=== PATIENT | female | born 1965 | race Caucasian/White ===

== ENCOUNTER 2019-02-01 13:33 | Inpatient (IN) | payer MEDICAID ==
[2019-02-01] MEDS ORDERED: Albuterol 0.5% CONC NEB.SOL* 5 MG/ML 20 ml BOT INH ONE (13:51)
[2019-02-01] MEDS ORDERED: methylPREDNISolone 125 MG* 2 ML VIAL IV ONE (13:52)
--- NOTE | 2019-02-01 13:54 | ED ---
Shortness of Breath - HPI Summary HPI Summary: This patient is a 54 year old female with a Hx of COPD presenting to [facility] with a chief complaint of SOB since 6 days ago. She reports rib pain. She took nebulizer treatments at home to some relief. - History of Current Complaint Chief Complaint: EDShortnessOfBreath Time Seen by Provider: 02/01/19 13:44 Hx Obtained From: Patient Onset/Duration: Lasting Days Dyspnea At: Rest Associated Signs & Symptoms: Cough (Nonproductive) - Allergy/Home Medications Allergies/Adverse Reactions: Allergies Allergy/AdvReac Type Severity Reaction Status Date / Time No Known Allergies Allergy Verified 02/01/19 13:42 Home Medications: Home Medications Aclidinium [place] [Tudorza Pressair] 1 puff INH BID 02/01/19 [History Confirmed 02/01/19] Albuterol 2.5MG/3ML (0.083%)* [Ventolin 2.5 MG/3 ML NEB.RENAN*] 3 ml INH TID PRN 02/01/19 [History Confirmed 02/01/19] Albuterol HFA INHALER* [Ventolin HFA Inhaler*] 2 puff INH Q4H PRN 02/01/19 [ History Confirmed 02/01/19] Fluticasone-Salmeterol 500-50* [Advair Diskus 500-50*] 1 puff INH BID 02/01/19 [ History Confirmed 02/01/19] PMH/Surg Hx/FS Hx/Imm Hx Respiratory History: Reports: Hx Chronic Obstructive Pulmonary Disease (COPD) - Cancer History Hx Chemotherapy: No Hx Radiation Therapy: No Infectious Disease History: No Infectious Disease History: Denies: Traveled Outside the [place] in Last 30 Days Review of Systems Negative: Fever Positive: Shortness Of Breath, Cough Positive: Other - Rib pain All Other Systems Reviewed And Are Negative: Yes Physical Exam - Summary Physical Exam Summary: Constitutional: Well-developed, Well-nourished, Alert. (-) Distressed Skin: Warm, Dry HENT: Normocephalic; Atraumatic Eyes: Conjunctiva normal Neck: Musculoskeletal ROM normal neck. (-) JVD, (-) Stridor, (-) Tracheal deviation Cardio: Rhythm regular, rate normal, Heart sounds normal; Intact distal pulses; Radial pulses are 2+ and symmetric. (-) Murmur Pulmonary/Chest wall:(+) Respiratory distress, No retractions or tripoding. Speaks in 4-5 word sentences. Increased respiratory effort bilaterally, decreased breath sounds bilaterally, Expiratory wheezes bilaterally, (-) Rales Abd: Soft, (-) tenderness, (-) Distension, (-) Guarding, (-) Rebound Musculoskeletal: (-) Edema Lymph: (-) Cervical adenopathy Neuro: Alert, Oriented x3 Psych: Mood and affect Normal Triage Information Reviewed: Yes Vital Signs On Initial Exam: Initial Vitals Temp Pulse Resp BP Pulse Ox 100 F 122 30 152/81 60 02/01/19 13:36 02/01/19 13:36 02/01/19 13:36 02/01/19 13:36 02/01/19 13:36 Vital Signs Reviewed: Yes Procedures - Sedation Patient Received Moderate/Deep Sedation with Procedure: No Diagnostics - Vital Signs Vital Signs Temp Pulse Resp BP Pulse Ox 02/01/19 13:36 100 F 122 30 152/81 60 - Laboratory Result Diagrams: 02/01/19 14:06 02/01/19 14:06 Lab Statement: Any lab studies that have been ordered have been reviewed, and results considered in the medical decision making process. - Radiology CXR Radiology Interpretation Completed By: Radiologist Summary of Radiographic Findings: Small basilar infiltrates. ED Physician has reviewed this report. Re-Evaluation - Re-Evaluation First Eval Re-Evaluation Time: 15:01 Change: Improved Comment: She is feeling better, still getting her nebulizer treatment on vapotherm. Second Eval Re-Evaluation Time: 15:33 Comment: We will trial her off vapotherm. Course/Dx - Course Course Of Treatment: Patient is here with shortness of breath. Patient was 60% on room air upon arrival and was placed on oxygen mask. Patient was then given a 10 mg bolus treatment and placed on Vapotherm at improvement in her symptoms. Patient is given Solu-Medrol and antibiotics empirically. Patient had a chest x-ray showed possible bibasilar infiltrate. Patient was admitted to medicine for further management. - Diagnoses Provider Diagnoses: Pneumonia, COPD exacerbation, Respiratory distress - Critical Care Time Critical Care Time: 30-74 min - 35 mins Discharge ED - Sign-Out/Discharge Documenting (check all that apply): Patient Departure - Admission, accepted by Dr. Wayne, Hospitalist - Discharge Plan Condition: Stable Disposition: ADMITTED TO [facility] Referrals: Jono Max MD [Primary Care Provider] - - Billing Disposition and Condition Condition: STABLE Disposition: Admitted to [facility] - Attestation Statements Document Initiated by Lina: Yes Documenting Scribe: Jono Sam Provider For Whom Lina is Documenting (Include Credential): Marbin Garcia MD Scribe Attestation: Jono Raphael, scribed for Marbin Garcia MD on 02/01/19 at 1716. Scribe Documentation Reviewed: Yes Provider Attestation: The documentation as recorded by the Jono mix accurately reflects the service I personally performed and the decisions made by me, Marbin Garcia MD Status of Scribe Document: Viewed
[2019-02-01 14:16] LABS: ABS Basophils 0.1 10^3/ul (0-0.2); ABS Lymphocytes 1.2 10^3/ul (1.0-4.8); ABS Neutrophils 13.8 10^3/ul (1.5-7.7); Eosinophil % 0.3 %; Hematocrit 50 % (35-47); Hemoglobin 17.1 g/dL (12.0-16.0); Lymphocyte % 7.4 %; Mean Corpuscular HGB Conc 34 g/dL (31-36); Mean Corpuscular Hemoglobin 32 pg (27-31); Mean Corpuscular Volume 94 fL (80-97); Mean Platelet Volume 8.9 fL (7.4-10.4); Nucleated Red Blood Cells % 0.1; Platelet Count 239 10^3/uL (150-450); Red Blood Count 5.35 10^6 /uL (3.70-4.87); Red Cell Distribution Width 14 % (10-15); White Blood Count 16.2 10^3/uL (3.5-10.8)
[2019-02-01 14:33] LABS: BUN/Creatinine Ratio 17.3 (8-20); Calcium 9.6 mg/dL (8.6-10.3); EGFR African American 88.5 (>60); EGFR Non-African American 73.1 (>60); Potassium 3.7 mmol/L (3.5-5.0)
[2019-02-01 14:36] LABS: Troponin I 0.03 ng/mL (<0.04)
[2019-02-01] MEDS ORDERED: Azithromycin 500 mg/250 ml NS 500 MG/250 ML BAG IVPB ONE (15:21)
[2019-02-01] MEDS ORDERED: cefTRIAXone(*) 1 GM in NS 0.9% 50 ML* 50 ML IVPB ONE (15:21)
[2019-02-01] MEDS ORDERED: Senna TAB 8.6 mg* TAB PO PRN (17:06)
[2019-02-01] MEDS ORDERED: Al Hydrox/Mg Hydrox/Simet LIQ* 30 ML UDC PO PRN (17:06)
[2019-02-01] MEDS ORDERED: Ondansetron INJ* 2 MG/ML VIAL IV PRN (17:06)
[2019-02-01] MEDS ORDERED: Albuterol HFA INHALER* 8 gm MDI INH PRN (17:10)
[2019-02-01] MEDS: Albuterol/Ipratropium NEB.SOL* Albuterol 2.5 MG/Ipratropium 0.5 MG 3 ML INH SCH ×2 (19:34→22:53)
[2019-02-01] MEDS: Mometasone/Formoter 200/5 MDI INH SCH (19:34)
--- NOTE | 2019-02-01 19:47 | HP ---
CC: Dr. Max * HISTORY AND PHYSICAL: DATE OF ADMISSION: 02/01/19 PRIMARY CARE PROVIDER: Dr. Max ATTENDING PHYSICIAN WHILE IN THE HOSPITAL: Dr. Collin Saunders * (dictated by YULI Drake) CHIEF COMPLAINT: Shortness of breath x6 days. HISTORY OF PRESENT ILLNESS: Charlotte Figueroa is a 54-year-old white female with past medical history significant for COPD, on 2 L of oxygen at home, who presented to the emergency department today for shortness of breath that has been worsening for last 6 days. The patient has been having progressively worsening shortness of breath and is to the point for the last 2 days where she is short of breath at rest. She has been using her albuterol nebulizer which help but within a few hours they wear off and she is feeling quite short of breath even at rest. She has been having productive cough over the last 6 days as well which has been producing yellow or green sputum. She does not feel as if she has been feeling fever but has been "feeling hot" and denies shaking chills. For the last 2 days, she has been having rib pain with cough. She denies chest pain, dysuria, change in bowel movements, abdominal pain, nausea, or vomiting. She endorses that the rash to her cortez has been present for last 2 years. She was previously prescribed a steroid cream which helps but when she ran out of it, the rash came back. It seems that she has not talked to her primary care provider about this and also has been unable to see her primary care provider because of lack of insurance at this time. The patient has been having decreased appetite over the last 5 to 6 days as well. EMERGENCY DEPARTMENT COURSE: When the patient arrived to emergency department, her vital signs were temperature of 100.0 degrees Fahrenheit, heart rate of 122 , respiratory rate of 30, oxygen saturation of 60% on room air, blood pressure 152/81. The patient was given 125 mg of IV Solu-Medrol, 1 g of IV ceftriaxone, 500 mg of IV azithromycin and albuterol nebulizer. She was then given high flow oxygen at 15 L and her oxygen saturation was 95%. PAST MEDICAL HISTORY: COPD, on 2 L of oxygen. The patient denies prior history of diabetes, LA, and CVA. She is unsure if she has the diagnosis regarding the rash on her lower extremities. PAST SURGICAL HISTORY: Tubal ligation. HOME MEDICATIONS: 1. N[place]um Diskus 500-50 one puff inhale b.i.d. 2. Ventolin 2 puffs inhale q.4 hours p.r.n. shortness of breath or wheezing. 3. Albuterol nebulizer 3 mL inhale t.i.d. p.r.n. shortness of breath or wheezing. 4. Tudorza Pressair one puff inhale b.i.d. ALLERGIES: No known drug allergies. FAMILY HISTORY: Father at unknown age of unknown reason. Mother at age unknown to the patient due to complications of possible internal bleeding which is overall unclear to the patient. The patient's sister in her 50s of complications related to COPD. SOCIAL HISTORY: The patient is on disability. Prior to being on disability, she was a date night sitter. She lives with her and they have 4 children together. She quit smoking approximately a year ago, prior to that she was smoking for 40 years, approximately at 1 packet per day. She denies alcohol use and illicit drug use. Should she need a surrogate medical decision maker, she would like her , Denys Figueroa to do so. His phone number is [phone]. REVIEW OF SYSTEMS: An 11-point review of systems was completed and all pertinent positives and negatives are above in the HPI. All other systems are negative. PHYSICAL EXAMINATION GENERAL: Overweight white female appears older than stated age sitting upright in hospital bed, appearing comfortable, in no acute distress. at bedside. HEENT: Head: Normocephalic, atraumatic. Eyes: PERRL. Sclerae anicteric. ENT: Mucous membranes are moist. LUNGS: Diminished breath sounds throughout. Faint expiratory wheezing in the middle and upper lung ndiaye bilaterally, posteriorly as well as anteriorly. No use of accessory muscles with respirations. Is not overtly dyspneic during my exam. CARDIO: Regular rate and rhythm without murmurs, rubs, or gallops. ABDOMEN: Soft, nontender, nondistended. EXTREMITIES: No clubbing, cyanosis, or edema. NEURO: The patient is alert and oriented x3. No focal deficits. No tremors. Able to move all extremities. SKIN: Dry, large patch of approximately 3 inches x 5 inches bilaterally on anterior distal shins with evidence of excoriation and erythematous on the surrounding on the edge of the patch and throughout disseminated. The skin is otherwise warm, dry, and intact. DIAGNOSTIC STUDIES/LAB DATA: White blood cell count 16.2, hemoglobin 17.1, hematocrit 50, platelet count 239. Sodium 136, potassium 3.7, chloride 99, carbon dioxide 27, anion gap 10, BUN 14, creatinine 1.81, glucose 127. Calcium 9.6. Troponin 0.03. VBG pH 7.34, pCO2 56, pO2 172.0, bicarb 27.3, O2 sat 100, base excess 3.1. EKG: Sinus tachycardia 118 beats per minute. No ST elevations or depressions. T wave flattening in V1, which is consistent with prior EKG from 2010. Chest x-ray, impression: Small bibasilar infiltrates. ASSESSMENT AND PLAN: Jyoti Figueroa is a 54-year-old white female with past medical history significant for chronic obstructive pulmonary disease, on 2 L of oxygen, who presents to the emergency department with shortness of breath that has been progressive for the last 6 days. She will be admitted inpatient for: 1. Acute on chronic respiratory failure with hypoxia. This is secondary to chronic obstructive pulmonary disease exacerbation which is likely triggered by pneumonia as evidenced by her chest x-ray. She was hypoxic 60% saturation on arrival. Her VBG was taken after she was given sufficient oxygen. At the time of my evaluation, she is on 10 L but this is with a simple oxygen mask as opposed to nasal cannula. She does not demonstrate significant effort of respirations at this time and she will get scheduled DuoNeb. I will continue ceftriaxone, azithromycin. I will order a sputum culture, urine legionella and urine Strep pneumoniae. At the time of arrival to emergency department, she was tachycardiac and tachypneic with leukocytosis. However, I do not believe she is septic as I believe tachycardia and tachypnea is due to severe shortness of breath secondary to chronic obstructive pulmonary disease exacerbation. I will order 60 mg of prednisone to start tomorrow and I will continue her home inhalers. 2. Rash. The patient has had a persistent rash for last 2 years and it is possible that this is atopic dermatitis that previously resolved with steroids. I will order some steroid cream while she is in the hospital. I will order hydrocortisone cream b.i.d. and monitor for improvement. 3. Pneumonia. Bibasilar infiltrates as demonstrated on EKG. Management as described above with ceftriaxone and azithromycin and the patient is afebrile at this time and we will continue to monitor her leukocytosis. 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 4. FEN: Electrolytes within normal limits. No IV fluid needed at this time. The patient may have regular unrestricted diet. 5. Code status: The patient is full code. 6. DVT prophylaxis: The patient has a DVT risk score of 2. I will order Lovenox 40 mg subcu daily. 7. Early discharge planning. Social work has been consulted as the patient does not have insurance. TIME SPENT: Approximately 45 minutes was spent on this admission, approximately half this time was spent at bedside evaluating the patient and discussing the plan of care. This case has been reviewed with my attending, Dr. Collin Saunders, and he agrees with this plan of care. YULI DRAKE [id number]/[facility] #: [id number] SORIN
[2019-02-01] MEDS: Enoxaparin(*) 40 MG/0.4 ML SYR SUBCUT SCH (22:05)
[2019-02-01] MEDS: Hydrocortisone 1% CREAM* 30 GM TUBE TOPICAL SCH (22:08)
[2019-02-01] MEDS: ACLIDINIUM BROMIDE INH SCH (22:18)
[2019-02-02 05:26] LABS: ABS Monocytes 0.2 10^3/ul (0-0.8); ABS Neutrophils 12.1 10^3/ul (1.5-7.7); Hematocrit 48 % (35-47); Hemoglobin 16.1 g/dL (12.0-16.0); Lymphocyte % 7.6 %; Mean Corpuscular HGB Conc 34 g/dL (31-36); Mean Corpuscular Hemoglobin 32 pg (27-31); Mean Corpuscular Volume 94 fL (80-97); Mean Platelet Volume 9.1 fL (7.4-10.4); Nucleated Red Blood Cells % 0.1; Platelet Count 236 10^3/uL (150-450); Red Blood Count 5.07 10^6 /uL (3.70-4.87); Red Cell Distribution Width 14 % (10-15); White Blood Count 13.3 10^3/uL (3.5-10.8)
[2019-02-02 05:44] LABS: BUN/Creatinine Ratio 23.8 (8-20); Calcium 9.5 mg/dL (8.6-10.3); EGFR African American 84.9 (>60); EGFR Non-African American 70.1 (>60); Potassium 4.1 mmol/L (3.5-5.0)
[2019-02-02] MEDS: Albuterol/Ipratropium NEB.SOL* Albuterol 2.5 MG/Ipratropium 0.5 MG 3 ML INH SCH ×6 (07:10→23:27)
[2019-02-02] MEDS: Mometasone/Formoter 200/5 MDI INH SCH ×2 (08:23→19:40)
[2019-02-02] MEDS: predniSONE TAB* 20 MG PO SCH (09:31)
[2019-02-02] MEDS: Hydrocortisone 1% CREAM* 30 GM TUBE TOPICAL SCH ×2 (09:31→21:55)
[2019-02-02] MEDS: ACLIDINIUM BROMIDE INH SCH (09:45)
[2019-02-02] MEDS: Acetaminophen TAB* 325 MG PO PRN (12:32)
--- NOTE | 2019-02-02 13:11 | PN ---
Subjective Date of Service: 02/02/19 Interval History: Patient feels her breathing is more comfortable than yesterday. Switched to humidified nasal cannula today which has given her comfort as well. Patient denies SOB at rest, chest pain, fever/chills, abd pain. Agrees rash on legs is improved, denies itch. Objective Active Medications: Acetaminophen (Tylenol Tab*) 650 mg PO Q4H PRN PRN Reason: MILD PAIN or TEMP > 100.4 Last Admin: 02/02/19 12:32 Dose: 650 mg Al Hydrox/Mg Hydrox/Simethicone (Maalox Plus*) 30 ml PO Q6H PRN PRN Reason: INDIGESTION Albuterol (Ventolin Hfa Inhaler*) 2 puff INH Q4H PRN PRN Reason: SOB/WHEEZING Albuterol/Ipratropium (Duoneb (Albuterol 2.5 Mg/Ipratropium 0.5 Mg)) 1 neb INH [id number] AWAKE [facility] Last Admin: 02/02/19 11:43 Dose: 1 neb Enoxaparin Sodium (Lovenox(*)) 40 mg SUBCUT Q24H [facility] Last Admin: 02/01/19 22:05 Dose: 40 mg Hydrocortisone (Hytone Cream 1%*) 1 applic TOPICAL BID [facility] Last Admin: 02/02/19 09:31 Dose: 1 applic Ceftriaxone Sodium 1 gm/ (Sodium Chloride) 50 mls @ 100 mls/hr IVPB Q24H [facility] Azithromycin 250 mg/ Sodium (Chloride) 250 mls @ 250 mls/hr IVPB Q24H [facility] Mometasone Furoate/Formoterol Fumar (Dulera 200/5 Mdi*) 2 puff INH BID [facility] Last Admin: 02/02/19 08:23 Dose: 2 puff Non-Formulary Medication (Aclidinium [place] [Tudorza Pressair]) 1 puff INH BID [facility] Last Admin: 02/02/19 09:45 Dose: Not Given Ondansetron HCl (Zofran Inj*) 4 mg IV Q4H PRN PRN Reason: NAUSEA/VOMITING Prednisone (Deltasone Tab*) 60 mg PO DAILY [facility] Last Admin: 02/02/19 09:31 Dose: 60 mg Senna (Senokot 8.6 Mg Tab*) 1 tab PO BID PRN PRN Reason: CONSTIPATION Vital Signs - 8 hr 02/02/19 02/02/19 02/02/19 07:15 08:00 08:24 Temperature 96.5 F Pulse Rate 75 72 Respiratory 20 16 18 Rate Blood Pressure 114/79 (mmHg) O2 Sat by Pulse 89 97 Oximetry 02/02/19 02/02/19 02/02/19 11:13 11:46 11:47 Temperature 97.6 F Pulse Rate 86 70 93 Respiratory 24 18 70 Rate Blood Pressure 112/67 (mmHg) O2 Sat by Pulse 91 93 18 Oximetry Oxygen Devices in Use Now: Nasal Cannula Appearance: Overweight white female, appears older than stated age, laying upright in bed, in NAD Eyes: No Scleral Icterus, - - PERRL Ears/Nose/Mouth/Throat: Mucous Membranes Moist Neck: Trachea Midline Respiratory: Symmetrical Chest Expansion and Respiratory Effort, - - faint inspiratory and significant expiratory wheezing throughout; no accessory muscle use with respirations Cardiovascular: NL Sounds; No Murmurs; No JVD, RRR Abdominal: - - abd soft, nontender, nondistended Extremities: No Edema, No Clubbing, Cyanosis Skin: - - patches of erythema same size as admission with excoriations, erythema less dark, blanchable Neurological: Alert and Oriented x 3, NL Muscle Strength and Tone Result Diagrams: 02/02/19 05:07 02/02/19 05:07 Microbiology and Other Data: Microbiology 02/01/19 23:25 Gram Stain - Final Sputum 02/01/19 22:42 Legionella Urinary Antigen - Final Urine Negative Legionella Antigen Streptococcus pneumoniae Ag Screen - Final Negative S. pneumo Antigen Assess/Plan/Problems-Billing Assessment: 54 yo white female with PMHx COPD with chronic hypoxic respiratory failure on 2L O2 at home presents with SOB and cough x6 days. - Patient Problems (1) Acute and chronic respiratory failure with hypoxia Current Visit: Yes Status: Acute Code(s): J96.21 - ACUTE AND CHRONIC RESPIRATORY FAILURE WITH HYPOXIA SNOMED Code(s): 15179161 Comment: -presented with hypoxia, oxygen saturation 60% -requires 2L oxygen at home, currently using 6L -COPD exacerbation likely 2/2 pneumonia -significant wheezing though dyspnea greatly improved -continue scheduled duonebs, prednisone, flutter valve, home inhalers (2) Pneumonia Current Visit: Yes Status: Acute Code(s): J18.9 - PNEUMONIA, UNSPECIFIED ORGANISM SNOMED Code(s): 296822898 Comment: -bibasilar consolidations on CXR at admission -sputum culture pending -urine legionella and strep pneumo antigens negative -continue ceftriaxone and azithromycin -afebrile; leukocytosis downtrending though she is now on glucocorticoids (3) Rash Current Visit: Yes Status: Acute Code(s): R21 - RASH AND OTHER NONSPECIFIC SKIN ERUPTION SNOMED Code(s): 593881782 Comment: -to bilateral LEs -has improved in the past with steroid cream -appears consistent with atopic dermatitis, should have follow up outpatient -continue hydrocortisone cream (4) DVT prophylaxis Current Visit: Yes Status: Acute Code(s): Z29.9 - ENCOUNTER FOR PROPHYLACTIC MEASURES, UNSPECIFIED SNOMED Code(s): 296445639 Comment: -lovenox (5) Full code status Current Visit: Yes Status: Acute Code(s): Z78.9 - OTHER SPECIFIED HEALTH STATUS SNOMED Code(s): 921095162 Status and Disposition: pending medical improvement
[2019-02-02] MEDS: SPIRIVA Respimat* (tiotropium) 2.5 mcg/inh Inhaler INH SCH (15:12)
[2019-02-02] MEDS: cefTRIAXone(*) 1 GM in NS 0.9% 50 ML* 50 ML IVPB SCH (15:50)
[2019-02-02] MEDS: Azithromycin IV(*) 250 MG in NS 0.9% 250 ML* 250 ML IVPB SCH (16:42)
[2019-02-02] MEDS: Enoxaparin(*) 40 MG/0.4 ML SYR SUBCUT SCH (17:53)
[2019-02-03] MEDS: Acetaminophen TAB* 325 MG PO PRN ×3 (06:31→23:45)
[2019-02-03] MEDS: Albuterol/Ipratropium NEB.SOL* Albuterol 2.5 MG/Ipratropium 0.5 MG 3 ML INH SCH ×6 (06:48→23:20)
[2019-02-03] MEDS: Mometasone/Formoter 200/5 MDI INH SCH ×2 (07:28→19:21)
[2019-02-03] MEDS: SPIRIVA Respimat* (tiotropium) 2.5 mcg/inh Inhaler INH SCH (07:28)
[2019-02-03] MEDS: predniSONE TAB* 20 MG PO SCH (09:01)
--- NOTE | 2019-02-03 10:10 | PN ---
Subjective Date of Service: 02/03/19 Interval History: Patient reports her cough and shortness of breath continue to improve. She says her breathing feels very comfortable. Her oxygen was increased from 6L to 8L NC overnight and unclear why. Patient does continue to have productive cough but she reports less sputum production. Denies fever/chills. Reports rib pain on right side when coughing only. Denies chest pain, abd pain. Objective Active Medications: Acetaminophen (Tylenol Tab*) 650 mg PO Q4H PRN PRN Reason: MILD PAIN or TEMP > 100.4 Last Admin: 02/03/19 06:31 Dose: 650 mg Al Hydrox/Mg Hydrox/Simethicone (Maalox Plus*) 30 ml PO Q6H PRN PRN Reason: INDIGESTION Albuterol (Ventolin Hfa Inhaler*) 2 puff INH Q4H PRN PRN Reason: SOB/WHEEZING Albuterol/Ipratropium (Duoneb (Albuterol 2.5 Mg/Ipratropium 0.5 Mg)) 1 neb INH [id number] AWAKE [facility] Last Admin: 02/03/19 07:25 Dose: 1 neb Enoxaparin Sodium (Lovenox(*)) 40 mg SUBCUT Q24H [facility] Last Admin: 02/02/19 17:53 Dose: 40 mg Hydrocortisone (Hytone Cream 1%*) 1 applic TOPICAL BID [facility] Last Admin: 02/02/19 21:55 Dose: 1 applic Ceftriaxone Sodium 1 gm/ (Sodium Chloride) 50 mls @ 100 mls/hr IVPB Q24H [facility] Last Admin: 02/02/19 15:50 Dose: 100 mls/hr Azithromycin 250 mg/ Sodium (Chloride) 250 mls @ 250 mls/hr IVPB Q24H [facility] Last Admin: 02/02/19 16:42 Dose: 250 mls/hr Mometasone Furoate/Formoterol Fumar (Dulera 200/5 Mdi*) 2 puff INH BID [facility] Last Admin: 02/03/19 07:28 Dose: 2 puff Ondansetron HCl (Zofran Inj*) 4 mg IV Q4H PRN PRN Reason: NAUSEA/VOMITING Prednisone (Deltasone Tab*) 60 mg PO DAILY [facility] Last Admin: 02/03/19 09:01 Dose: 60 mg Senna (Senokot 8.6 Mg Tab*) 1 tab PO BID PRN PRN Reason: CONSTIPATION Tiotropium [place] (Spiriva Respimat 2.5 Mcg) 2 puff INH DAILY [facility] Last Admin: 02/03/19 07:28 Dose: 2 puff Vital Signs - 8 hr 02/03/19 02/03/19 02/03/19 03:10 06:05 07:29 Temperature 97.8 F 97.4 F Pulse Rate 69 66 50 Respiratory 20 20 16 Rate Blood Pressure 138/114 112/57 (mmHg) O2 Sat by Pulse 91 91 Oximetry Oxygen Devices in Use Now: High Flow Nasal Cannula Appearance: Overweight, white female who appears older than stated age, laying upright in bed, appearing comfortable and in NAD Eyes: No Scleral Icterus, - - PERRL Ears/Nose/Mouth/Throat: Mucous Membranes Moist Neck: Trachea Midline Respiratory: Symmetrical Chest Expansion and Respiratory Effort, - - faint expiratory wheezing bilaterally throughout Cardiovascular: NL Sounds; No Murmurs; No JVD, RRR Abdominal: - - abd soft, nontender, nondistended Extremities: No Edema, No Clubbing, Cyanosis Skin: - - patches of rash to bilateral shins unchanged from yesterday with diffuse excoriations Neurological: Alert and Oriented x 3, NL Muscle Strength and Tone Result Diagrams: 02/02/19 05:07 02/02/19 05:07 Microbiology and Other Data: Microbiology 02/01/19 23:25 Gram Stain - Final Sputum 02/01/19 22:42 Legionella Urinary Antigen - Final Urine Negative Legionella Antigen Streptococcus pneumoniae Ag Screen - Final Negative S. pneumo Antigen Assess/Plan/Problems-Billing Assessment: 54 yo white female with PMHx COPD with chronic hypoxic respiratory failure on 2L O2 at home presents with SOB and cough x6 days. - Patient Problems (1) Acute and chronic respiratory failure with hypoxia Current Visit: Yes Status: Acute Code(s): J96.21 - ACUTE AND CHRONIC RESPIRATORY FAILURE WITH HYPOXIA SNOMED Code(s): 29426390 Comment: -presented with hypoxia, oxygen saturation 60% -requires 2L oxygen at home, currently using 6L, will attempt to wean -COPD exacerbation likely 2/2 pneumonia -still with wheezing on exam but improving; no longer dyspneic -continue scheduled duonebs, prednisone, flutter valve, home inhalers (2) Pneumonia Current Visit: Yes Status: Acute Code(s): J18.9 - PNEUMONIA, UNSPECIFIED ORGANISM SNOMED Code(s): 783584441 Comment: -bibasilar consolidations on CXR at admission -sputum culture pending -urine legionella and strep pneumo antigens negative -continue ceftriaxone and azithromycin -afebrile; leukocytosis downtrending though she is now on glucocorticoids (3) Rash Current Visit: Yes Status: Acute Code(s): R21 - RASH AND OTHER NONSPECIFIC SKIN ERUPTION SNOMED Code(s): 861369743 Comment: -to bilateral LEs -has improved in the past with steroid cream -appears consistent with atopic dermatitis, should have follow up outpatient -continue hydrocortisone cream (4) DVT prophylaxis Current Visit: Yes Status: Acute Code(s): Z29.9 - ENCOUNTER FOR PROPHYLACTIC MEASURES, UNSPECIFIED SNOMED Code(s): 795435682 Comment: -lovenox (5) Full code status Current Visit: Yes Status: Acute Code(s): Z78.9 - OTHER SPECIFIED HEALTH STATUS SNOMED Code(s): 729762279 Status and Disposition: pending medical improvement
[2019-02-03] MEDS: Hydrocortisone 1% CREAM* 30 GM TUBE TOPICAL SCH ×2 (14:11→19:52)
[2019-02-03] MEDS: cefTRIAXone(*) 1 GM in NS 0.9% 50 ML* 50 ML IVPB SCH (16:35)
[2019-02-03] MEDS: Azithromycin IV(*) 250 MG in NS 0.9% 250 ML* 250 ML IVPB SCH (17:38)
[2019-02-03] MEDS: Enoxaparin(*) 40 MG/0.4 ML SYR SUBCUT SCH (18:17)
[2019-02-04] MEDS: Albuterol/Ipratropium NEB.SOL* Albuterol 2.5 MG/Ipratropium 0.5 MG 3 ML INH SCH ×6 (04:12→23:11)
[2019-02-04] MEDS: predniSONE TAB* 20 MG PO SCH (09:56)
[2019-02-04] MEDS: Acetaminophen TAB* 325 MG PO PRN ×2 (09:56→15:06)
[2019-02-04] MEDS: Hydrocortisone 1% CREAM* 30 GM TUBE TOPICAL SCH ×2 (09:57→19:53)
[2019-02-04] MEDS: Mometasone/Formoter 200/5 MDI INH SCH ×2 (12:07→19:11)
[2019-02-04] MEDS: SPIRIVA Respimat* (tiotropium) 2.5 mcg/inh Inhaler INH SCH (12:08)
--- NOTE | 2019-02-04 13:03 | PN ---
Subjective Date of Service: 02/04/19 Interval History: Patient does continue to have sputum production with cough. Was SOB when walking to the bathroom, but reports this is same as baseline. Denies fever/ chills, chest pain, abd pain. Agrees rash continues to improve. C/o nasal passages feeling dry and irritated. Objective Active Medications: Acetaminophen (Tylenol Tab*) 650 mg PO Q4H PRN PRN Reason: MILD PAIN or TEMP > 100.4 Last Admin: 02/04/19 09:56 Dose: 650 mg Al Hydrox/Mg Hydrox/Simethicone (Maalox Plus*) 30 ml PO Q6H PRN PRN Reason: INDIGESTION Albuterol (Ventolin Hfa Inhaler*) 2 puff INH Q4H PRN PRN Reason: SOB/WHEEZING Albuterol/Ipratropium (Duoneb (Albuterol 2.5 Mg/Ipratropium 0.5 Mg)) 1 neb INH [id number] AWAKE [facility] Last Admin: 02/04/19 12:07 Dose: 1 neb Enoxaparin Sodium (Lovenox(*)) 40 mg SUBCUT Q24H [facility] Last Admin: 02/03/19 18:17 Dose: 40 mg Hydrocortisone (Hytone Cream 1%*) 1 applic TOPICAL BID [facility] Last Admin: 02/04/19 09:57 Dose: 1 applic Ceftriaxone Sodium 1 gm/ (Sodium Chloride) 50 mls @ 100 mls/hr IVPB Q24H [facility] Last Admin: 02/03/19 16:35 Dose: 100 mls/hr Azithromycin 250 mg/ Sodium (Chloride) 250 mls @ 250 mls/hr IVPB Q24H [facility] Last Admin: 02/03/19 17:38 Dose: 250 mls/hr Mometasone Furoate/Formoterol Fumar (Dulera 200/5 Mdi*) 2 puff INH BID [facility] Last Admin: 02/04/19 12:07 Dose: 2 puff Ondansetron HCl (Zofran Inj*) 4 mg IV Q4H PRN PRN Reason: NAUSEA/VOMITING Prednisone (Deltasone Tab*) 60 mg PO DAILY [facility] Last Admin: 02/04/19 09:56 Dose: 60 mg Senna (Senokot 8.6 Mg Tab*) 1 tab PO BID PRN PRN Reason: CONSTIPATION Tiotropium [place] (Spiriva Respimat 2.5 Mcg) 2 puff INH DAILY [facility] Last Admin: 02/04/19 12:08 Dose: Not Given Vital Signs - 8 hr 02/04/19 02/04/19 02/04/19 05:36 08:00 08:35 Temperature 98.5 F Pulse Rate 67 62 Respiratory 16 20 20 Rate Blood Pressure 122/65 (mmHg) O2 Sat by Pulse 95 91 Oximetry 02/04/19 12:08 Temperature Pulse Rate 69 Respiratory 18 Rate Blood Pressure (mmHg) O2 Sat by Pulse 95 Oximetry Oxygen Devices in Use Now: Nasal Cannula Appearance: White female who appears older than stated age, laying upright eating lunch, appearing in NAD Eyes: No Scleral Icterus, - - PERRL Ears/Nose/Mouth/Throat: Mucous Membranes Moist Neck: Trachea Midline Respiratory: Symmetrical Chest Expansion and Respiratory Effort, - - expiratory wheeze only in right upper lung field, otherwise diffuse rhonchi Cardiovascular: NL Sounds; No Murmurs; No JVD, RRR Abdominal: - - abd soft, nontender, nondistended Extremities: No Edema, No Clubbing, Cyanosis Skin: - - erythematous, dry patches to bilateral LEs appear less erythematous Neurological: Alert and Oriented x 3, NL Muscle Strength and Tone Result Diagrams: 02/02/19 05:07 02/02/19 05:07 Microbiology and Other Data: Microbiology 02/01/19 23:25 Gram Stain - Final Sputum 02/01/19 22:42 Legionella Urinary Antigen - Final Urine Negative Legionella Antigen Streptococcus pneumoniae Ag Screen - Final Negative S. pneumo Antigen Assess/Plan/Problems-Billing Assessment: 54 yo white female with PMHx COPD with chronic hypoxic respiratory failure on 2L O2 at home presents with SOB and cough x6 days. - Patient Problems (1) Acute and chronic respiratory failure with hypoxia Current Visit: Yes Status: Acute Code(s): J96.21 - ACUTE AND CHRONIC RESPIRATORY FAILURE WITH HYPOXIA SNOMED Code(s): 90586309 Comment: -presented with hypoxia, oxygen saturation 60% -requires 2L oxygen at home, currently using 6L, will attempt to wean -COPD exacerbation 2/2 pneumonia -wheezing on exam greatly improved -continue scheduled duonebs, prednisone, flutter valve, home inhalers -ordering mucinex -ordering saline nasal spray and will discuss humidified NC with nursing for irritated nasal passages (2) Pneumonia Current Visit: Yes Status: Acute Code(s): J18.9 - PNEUMONIA, UNSPECIFIED ORGANISM SNOMED Code(s): 375344726 Comment: -bibasilar consolidations on CXR at admission -sputum culture with normal mihai -urine legionella and strep pneumo antigens negative -continue ceftriaxone and azithromycin -afebrile; leukocytosis downtrending though she is now on glucocorticoids (3) Rash Current Visit: Yes Status: Acute Code(s): R21 - RASH AND OTHER NONSPECIFIC SKIN ERUPTION SNOMED Code(s): 225619453 Comment: -to bilateral LEs -has improved in the past with steroid cream -appears consistent with atopic dermatitis, should have follow up outpatient -continue hydrocortisone cream (4) DVT prophylaxis Current Visit: Yes Status: Acute Code(s): Z29.9 - ENCOUNTER FOR PROPHYLACTIC MEASURES, UNSPECIFIED SNOMED Code(s): 420743761 Comment: -lovenox (5) Full code status Current Visit: Yes Status: Acute Code(s): Z78.9 - OTHER SPECIFIED HEALTH STATUS SNOMED Code(s): 834259127 Status and Disposition: pending medical improvement
[2019-02-04] MEDS ORDERED: Saline NASAL DROPS 0.65%* 1 DROP BTL BOTH NARES PRN (13:07)
[2019-02-04] MEDS: cefTRIAXone(*) 1 GM in NS 0.9% 50 ML* 50 ML IVPB SCH (15:06)
[2019-02-04] MEDS: Azithromycin IV(*) 250 MG in NS 0.9% 250 ML* 250 ML IVPB SCH (16:13)
[2019-02-04] MEDS: Saline NASAL SPRAY 0.65%* BTL BOTH NARES PRN (16:49)
[2019-02-04] MEDS: Enoxaparin(*) 40 MG/0.4 ML SYR SUBCUT SCH (16:49)
[2019-02-04] MEDS: guaiFENesin ER TAB 600 MG PO SCH (19:53)
[2019-02-05] MEDS: Albuterol/Ipratropium NEB.SOL* Albuterol 2.5 MG/Ipratropium 0.5 MG 3 ML INH SCH ×6 (03:18→23:22)
[2019-02-05] MEDS: Acetaminophen TAB* 325 MG PO PRN ×2 (06:36→18:28)
[2019-02-05] MEDS: SPIRIVA Respimat* (tiotropium) 2.5 mcg/inh Inhaler INH SCH (07:30)
[2019-02-05] MEDS: Mometasone/Formoter 200/5 MDI INH SCH ×2 (07:30→19:33)
[2019-02-05] MEDS: guaiFENesin ER TAB 600 MG PO SCH ×2 (10:28→20:01)
[2019-02-05] MEDS: predniSONE TAB* 20 MG PO SCH (10:28)
[2019-02-05] MEDS: Hydrocortisone 1% CREAM* 30 GM TUBE TOPICAL SCH ×2 (10:28→20:01)
[2019-02-05] MEDS: cefTRIAXone(*) 1 GM in NS 0.9% 50 ML* 50 ML IVPB SCH (15:22)
[2019-02-05] MEDS: Azithromycin IV(*) 250 MG in NS 0.9% 250 ML* 250 ML IVPB SCH (16:32)
[2019-02-05] MEDS: Enoxaparin(*) 40 MG/0.4 ML SYR SUBCUT SCH (18:26)
--- NOTE | 2019-02-05 19:34 | PN ---
Subjective Date of Service: 02/05/19 Interval History: Patient has no complaints. No acute overnight events. Fortunately, SW has discovered patient has already had medicaid unbeknownst to patient. Patient does continue to have sputum production with cough. Denies chest pain, difficulty breathing, fever/chills, abd pain, nausea. Nasal irritation from nasal cannula has improved today per patient. Objective Active Medications: Acetaminophen (Tylenol Tab*) 650 mg PO Q4H PRN PRN Reason: MILD PAIN or TEMP > 100.4 Last Admin: 02/05/19 18:28 Dose: 650 mg Al Hydrox/Mg Hydrox/Simethicone (Maalox Plus*) 30 ml PO Q6H PRN PRN Reason: INDIGESTION Albuterol (Ventolin Hfa Inhaler*) 2 puff INH Q4H PRN PRN Reason: SOB/WHEEZING Albuterol/Ipratropium (Duoneb (Albuterol 2.5 Mg/Ipratropium 0.5 Mg)) 1 neb INH [id number] AWAKE [facility] Last Admin: 02/05/19 14:39 Dose: 1 neb Enoxaparin Sodium (Lovenox(*)) 40 mg SUBCUT Q24H [facility] Last Admin: 02/05/19 18:26 Dose: 40 mg Guaifenesin (Mucinex*) 1,200 mg PO BID [facility] Last Admin: 02/05/19 10:28 Dose: 1,200 mg Hydrocortisone (Hytone Cream 1%*) 1 applic TOPICAL BID [facility] Last Admin: 02/05/19 10:28 Dose: 1 applic Ceftriaxone Sodium 1 gm/ (Sodium Chloride) 50 mls @ 100 mls/hr IVPB Q24H [facility] Last Admin: 02/05/19 15:22 Dose: 100 mls/hr Azithromycin 250 mg/ Sodium (Chloride) 250 mls @ 250 mls/hr IVPB Q24H [facility] Stop: 02/05/19 23:00 Last Admin: 02/05/19 16:32 Dose: 250 mls/hr Mometasone Furoate/Formoterol Fumar (Dulera 200/5 Mdi*) 2 puff INH BID [facility] Last Admin: 02/05/19 07:30 Dose: 2 puff Ondansetron HCl (Zofran Inj*) 4 mg IV Q4H PRN PRN Reason: NAUSEA/VOMITING Prednisone (Deltasone Tab*) 60 mg PO DAILY [facility] Last Admin: 02/05/19 10:28 Dose: 60 mg Senna (Senokot 8.6 Mg Tab*) 1 tab PO BID PRN PRN Reason: CONSTIPATION Sodium Chloride (Sodium Chloride 0.65% Nasal Painter*) 1 spray BOTH NARES Q4H PRN PRN Reason: nasal irritation Last Admin: 02/04/19 16:49 Dose: 1 spray Tiotropium [place] (Spiriva Respimat 2.5 Mcg) 2 puff INH DAILY [facility] Last Admin: 02/05/19 07:30 Dose: 2 puff Vital Signs - 8 hr 02/05/19 02/05/19 14:41 15:15 Temperature 98.1 F Pulse Rate 91 78 Respiratory 18 20 Rate Blood Pressure 123/68 (mmHg) O2 Sat by Pulse 93 90 Oximetry Oxygen Devices in Use Now: Nasal Cannula Appearance: Overweight, white female, appears older than stated age, sitting upright in hospital bed, appearing comfortable and in NAD Eyes: No Scleral Icterus, - - PERRL Ears/Nose/Mouth/Throat: Mucous Membranes Moist Neck: Trachea Midline Respiratory: Symmetrical Chest Expansion and Respiratory Effort, - - diminished lung sounds throughout but overall clear to auscultation Cardiovascular: NL Sounds; No Murmurs; No JVD, RRR Abdominal: - - abd soft, nontender, nondistended Extremities: No Edema, No Clubbing, Cyanosis Skin: - - bilateral LE patches appear less erythematous though the same size as previously Neurological: Alert and Oriented x 3, NL Muscle Strength and Tone Result Diagrams: 02/02/19 05:07 02/02/19 05:07 Microbiology and Other Data: Microbiology 02/01/19 23:25 Gram Stain - Final Sputum 02/01/19 22:42 Legionella Urinary Antigen - Final Urine Negative Legionella Antigen Streptococcus pneumoniae Ag Screen - Final Negative S. pneumo Antigen Assess/Plan/Problems-Billing Assessment: 54 yo white female with PMHx COPD with chronic hypoxic respiratory failure on 2L O2 at home presents with SOB and cough x6 days. - Patient Problems (1) Acute and chronic respiratory failure with hypoxia Current Visit: Yes Status: Acute Code(s): J96.21 - ACUTE AND CHRONIC RESPIRATORY FAILURE WITH HYPOXIA SNOMED Code(s): 49953912 Comment: -presented with hypoxia, oxygen saturation 60% -COPD exacerbation 2/2 pneumonia -requires 2L oxygen at home, currently using 5L. Oxygen saturation while ambulating was 81% despite 8L oxgyen today -wheezing on exam resolved -continue scheduled duonebs, prednisone, flutter valve, home inhalers, mucinex -ordering saline nasal spray and will discuss humidified NC with nursing for irritated nasal passages (2) Pneumonia Current Visit: Yes Status: Acute Code(s): J18.9 - PNEUMONIA, UNSPECIFIED ORGANISM SNOMED Code(s): 640478287 Comment: -bibasilar consolidations on CXR at admission -sputum culture with normal mihai -urine legionella and strep pneumo antigens negative -continue ceftriaxone. Today is day 5/5 azithromycin and will d/c tonight -afebrile; leukocytosis downtrending initially though she is now on glucocorticoids and will not check further (3) Rash Current Visit: Yes Status: Acute Code(s): R21 - RASH AND OTHER NONSPECIFIC SKIN ERUPTION SNOMED Code(s): 762699552 Comment: -rash to bilateral LEs -has improved in the past with steroid cream -appears consistent with atopic dermatitis, should have follow up outpatient -continue hydrocortisone cream (4) DVT prophylaxis Current Visit: Yes Status: Acute Code(s): Z29.9 - ENCOUNTER FOR PROPHYLACTIC MEASURES, UNSPECIFIED SNOMED Code(s): 564770293 Comment: -lovenox (5) Full code status Current Visit: Yes Status: Acute Code(s): Z78.9 - OTHER SPECIFIED HEALTH STATUS SNOMED Code(s): 374936098 Status and Disposition: pending medical improvement. Patient's home oxygen concentrator has maximum 5L setting and currently this is not attainable with ambulation.
[2019-02-06] MEDS: Albuterol/Ipratropium NEB.SOL* Albuterol 2.5 MG/Ipratropium 0.5 MG 3 ML INH SCH ×5 (04:10→20:05)
[2019-02-06] MEDS: Mometasone/Formoter 200/5 MDI INH SCH ×2 (08:03→20:05)
[2019-02-06] MEDS: SPIRIVA Respimat* (tiotropium) 2.5 mcg/inh Inhaler INH SCH (08:03)
[2019-02-06] MEDS: guaiFENesin ER TAB 600 MG PO SCH ×2 (10:26→20:17)
[2019-02-06] MEDS: predniSONE TAB* 20 MG PO SCH (10:26)
[2019-02-06] MEDS: Acetaminophen TAB* 325 MG PO PRN ×2 (10:27→15:43)
[2019-02-06] MEDS: Hydrocortisone 1% CREAM* 30 GM TUBE TOPICAL SCH ×2 (10:28→20:17)
[2019-02-06] MEDS: Saline NASAL SPRAY 0.65%* BTL BOTH NARES PRN (10:43)
--- NOTE | 2019-02-06 14:03 | PN ---
Subjective Date of Service: 02/06/19 Interval History: Patient states she is not SOB, but earlier in the day told the nurse that she was SOB. Patient denies CP, dizziness, TOBIAS, N/V, abdominal pain, dysuria, diarrhea, or other pain. Patient is anxious to get home to her dog. Family History: Unchanged from Admission Social History: Unchanged from Admission Past Medical History: Unchanged from Admission Objective Active Medications: Acetaminophen (Tylenol Tab*) 650 mg PO Q4H PRN PRN Reason: MILD PAIN or TEMP > 100.4 Last Admin: 02/06/19 10:27 Dose: 650 mg Al Hydrox/Mg Hydrox/Simethicone (Maalox Plus*) 30 ml PO Q6H PRN PRN Reason: INDIGESTION Albuterol (Ventolin Hfa Inhaler*) 2 puff INH Q4H PRN PRN Reason: SOB/WHEEZING Albuterol/Ipratropium (Duoneb (Albuterol 2.5 Mg/Ipratropium 0.5 Mg)) 1 neb INH [id number] AWAKE [facility] Last Admin: 02/06/19 11:42 Dose: 1 neb Enoxaparin Sodium (Lovenox(*)) 40 mg SUBCUT Q24H [facility] Last Admin: 02/05/19 18:26 Dose: 40 mg Guaifenesin (Mucinex*) 1,200 mg PO BID [facility] Last Admin: 02/06/19 10:26 Dose: 1,200 mg Hydrocortisone (Hytone Cream 1%*) 1 applic TOPICAL BID [facility] Last Admin: 02/06/19 10:28 Dose: 1 applic Ceftriaxone Sodium 1 gm/ (Sodium Chloride) 50 mls @ 100 mls/hr IVPB Q24H [facility] Last Admin: 02/05/19 15:22 Dose: 100 mls/hr Mometasone Furoate/Formoterol Fumar (Dulera 200/5 Mdi*) 2 puff INH BID [facility] Last Admin: 02/06/19 08:03 Dose: 2 puff Ondansetron HCl (Zofran Inj*) 4 mg IV Q4H PRN PRN Reason: NAUSEA/VOMITING Prednisone (Deltasone Tab*) 60 mg PO DAILY [facility] Last Admin: 02/06/19 10:26 Dose: 60 mg Senna (Senokot 8.6 Mg Tab*) 1 tab PO BID PRN PRN Reason: CONSTIPATION Sodium Chloride (Sodium Chloride 0.65% Nasal [place]*) 1 spray BOTH NARES Q4H PRN PRN Reason: nasal irritation Last Admin: 02/06/19 10:43 Dose: 1 spray Tiotropium [place] (Spiriva Respimat 2.5 Mcg) 2 puff INH DAILY [facility] Last Admin: 02/06/19 08:03 Dose: 2 puff Vital Signs - 8 hr 02/06/19 02/06/19 02/06/19 08:00 08:04 11:45 Pulse Rate 69 79 Respiratory 20 18 16 Rate O2 Sat by Pulse 96 90 Oximetry Oxygen Devices in Use Now: Nasal Cannula Appearance: Patient is a 54yo female who appears stated age and is sitting in the bed in NAD. Eyes: No Scleral Icterus, PERRLA Ears/Nose/Mouth/Throat: NL Teeth, Lips, Gums, Clear Oropharnyx, Mucous Membranes Moist Neck: NL Appearance and Movements; NL JVP, Trachea Midline Respiratory: Symmetrical Chest Expansion and Respiratory Effort, - - Expiratory wheezing throughout. Cardiovascular: NL Sounds; No Murmurs; No JVD, RRR, No Edema Abdominal: NL Sounds; No Tenderness; No Distention, No Hepatosplenomegaly Lymphatic: No Cervical Adenopathy Extremities: No Edema, No Clubbing, Cyanosis Skin: No Rash or Ulcers, No Nodules or Sclerosis Neurological: Alert and Oriented x 3, NL Sensation, NL Muscle Strength and Tone , - - CN II-XII intact. Result Diagrams: 02/02/19 05:07 02/02/19 05:07 Microbiology and Other Data: Microbiology 02/01/19 23:25 Gram Stain - Final Sputum 02/01/19 22:42 Legionella Urinary Antigen - Final Urine Negative Legionella Antigen Streptococcus pneumoniae Ag Screen - Final Negative S. pneumo Antigen Assess/Plan/Problems-Billing Assessment: 54 yo white female with PMHx COPD with chronic hypoxic respiratory failure on 2L O2 at home presents with SOB and cough x6 days, found to have pneumonia and COPD exacerbation, improving slowly. - Patient Problems (1) Acute and chronic respiratory failure with hypoxia Current Visit: Yes Status: Acute Code(s): J96.21 - ACUTE AND CHRONIC RESPIRATORY FAILURE WITH HYPOXIA SNOMED Code(s): 80483728 Comment: - Presented with hypoxia, oxygen saturation 60% - COPD exacerbation 2/2 pneumonia - Requires 2L oxygen at home, currently using 6L at rest with Saturation in the low 90s. Oxygen saturation while ambulating was 81% despite 8L oxgyen yesterday - Continued wheezing on exam. - Continue scheduled duonebs, prednisone, flutter valve, home inhalers, mucinex (2) Pneumonia Current Visit: Yes Status: Acute Code(s): J18.9 - PNEUMONIA, UNSPECIFIED ORGANISM SNOMED Code(s): 893381800 Comment: - Bibasilar consolidations on CXR at admission - Sputum culture with normal mihai - Urine legionella and strep pneumo antigens negative - Continue ceftriaxone. Finished Azithromycin. (3) DVT prophylaxis Current Visit: Yes Status: Acute Code(s): Z29.9 - ENCOUNTER FOR PROPHYLACTIC MEASURES, UNSPECIFIED SNOMED Code(s): 271273417 Comment: - Lovenox SubQ (4) Full code status Current Visit: Yes Status: Acute Code(s): Z78.9 - OTHER SPECIFIED HEALTH STATUS SNOMED Code(s): 701070355 (5) Rash Current Visit: Yes Status: Acute Code(s): R21 - RASH AND OTHER NONSPECIFIC SKIN ERUPTION SNOMED Code(s): 178788506 Comment: - Rash to bilateral LEs consistent with atopic dermatitis - Continue hydrocortisone cream Status and Disposition: pending medical improvement. Patient's home oxygen concentrator has maximum 5L setting and currently this is not attainable with ambulation.
[2019-02-06] MEDS: cefTRIAXone(*) 1 GM in NS 0.9% 50 ML* 50 ML IVPB SCH (15:31)
[2019-02-06] MEDS: Enoxaparin(*) 40 MG/0.4 ML SYR SUBCUT SCH (17:29)
[2019-02-07] MEDS: Albuterol/Ipratropium NEB.SOL* Albuterol 2.5 MG/Ipratropium 0.5 MG 3 ML INH SCH ×7 (00:47→22:37)
[2019-02-07 06:06] LABS: ABS Eosinophils 0.1 10^3/ul (0-0.6); ABS Lymphocytes 2.5 10^3/ul (1.0-4.8); ABS Monocytes 0.6 10^3/ul (0-0.8); ABS Neutrophils 7.4 10^3/ul (1.5-7.7); Eosinophil % 0.7 %; Hematocrit 49 % (35-47); Hemoglobin 16.3 g/dL (12.0-16.0); Lymphocyte % 23.6 %; Mean Corpuscular HGB Conc 33 g/dL (31-36); Mean Corpuscular Hemoglobin 31 pg (27-31); Mean Corpuscular Volume 94 fL (80-97); Mean Platelet Volume 8.1 fL (7.4-10.4); Nucleated Red Blood Cells % 0.1; Platelet Count 269 10^3/uL (150-450); Red Blood Count 5.22 10^6 /uL (3.70-4.87); Red Cell Distribution Width 14 % (10-15); White Blood Count 10.6 10^3/uL (3.5-10.8)
[2019-02-07 06:24] LABS: BUN/Creatinine Ratio 26.2 (8-20); Calcium 9.2 mg/dL (8.6-10.3); EGFR African American 114.1 (>60); EGFR Non-African American 94.3 (>60); Magnesium 1.9 mg/dL (1.9-2.7); Potassium 3.9 mmol/L (3.5-5.0)
[2019-02-07] MEDS: SPIRIVA Respimat* (tiotropium) 2.5 mcg/inh Inhaler INH SCH (07:04)
[2019-02-07] MEDS: Acetaminophen TAB* 325 MG PO PRN (07:12)
[2019-02-07] MEDS: Mometasone/Formoter 200/5 MDI INH SCH ×3 (07:17→22:37)
[2019-02-07] MEDS: guaiFENesin ER TAB 600 MG PO SCH ×2 (08:05→20:06)
[2019-02-07] MEDS: predniSONE TAB* 20 MG PO SCH (08:06)
[2019-02-07] MEDS: Hydrocortisone 1% CREAM* 30 GM TUBE TOPICAL SCH ×2 (08:07→20:09)
[2019-02-07] MEDS ORDERED: Perflutren Lipid Microsphere* 3 ML VIAL ONE (10:10)
--- NOTE | 2019-02-07 11:32 | ECHO ---
*[facility]* [place] [address] Fax #: [phone] Transthoracic Echocardiogram Patient: Charlotte Figueroa : 1965 Study Date: 02/07/2019 Age: 54 Gender: F HR: 76 bpm Height: 64 in /162.6 cm BSA: 1.85 m^2 Weight: 175.6 lb /79.8 kg BMI: 30.2 kg/m^2 *Advisory Internship: * Lisandra Gillespie [facility] *Referring Physician: * John Ceballos *Reading Physician: * Cecilia Berg MD Indications: SOB. History: Former smoker,home oxygen. Conclusions Summary: - Left ventricle: The cavity size is normal. Systolic function is at the lower limits of normal. The estimated ejection fraction is 50-55%. Doppler parameters are consistent with abnormal left ventricular relaxation (grade 1 diastolic dysfunction). - Mitral valve: There is no significant regurgitation. - Tricuspid valve: Not well visualized. - No previous echocardiogram available. Study data: Transthoracic echocardiogram. Procedure: Study done with HOB @ 90 degrees & patient remained supine. Transthoracic echocardiography was performed. Image quality was suboptimal. The study was technically limited due to restricted patient mobility and Smoking history. Intravenous Definity , 3 mlswas administered. Image enhancement administered by Complete 2D, spectral Doppler, and color flow Doppler. Patient status: Inpatient. Patient room number: 413-1. Rhythm: Normal sinus rhythm. Findings Left ventricle: The cavity size is normal. Systolic function is at the lower limits of normal. The estimated ejection fraction is 50-55%. Wall motion is normal; there are no regional wall motion abnormalities. Doppler parameters are consistent with abnormal left ventricular relaxation (grade 1 diastolic dysfunction). Right ventricle: Not well visualized. Ventricular septum: The ventricular septum is normal. Left atrium: Poorly visualized. The atrium is normal in size. Right atrium: Not well visualized. Atrial septum: Poorly visualized. Mitral valve: Well visualized. The leaflets are normal thickness. No echocardiographic evidence for prolapse. There is no evidence of stenosis. There is no significant regurgitation. Aortic valve: Poorly visualized. The valve is trileaflet. The leaflets are normal thickness. There is no evidence of stenosis. There is no significant regurgitation. Tricuspid valve: Not well visualized. Pulmonic valve: Not well visualized. Aorta: The aorta is poorly visualized. Pericardium: There is no pericardial effusion. No evidence of pleural fluid accumulation. Pulmonary arteries: Not well visualized. Systemic veins: Not visualized. Pulmonary veins: Visualization of the pulmonary venous anatomy is incomplete, but a significant abnormality is unlikely. Measurements Left ventricle Value Ref Aortic valve Value Ref JOHNNY, LAX 4.1 cm 3.8 - Libby diam, ED 1.9 cm ---- 5.2 Peak v, S 1.4 m/sec ---- ESD, LAX 2.8 cm 2.2 - VTI, S 30.9 cm ---- 3.5 Mean grad, S 5.0 mm Hg ---- FS, LAX 32 % 45 Peak grad, S 8.0 mm Hg ---- PW, ED, LAX (H) 1.1 cm 0.6 - LVOT/AV, VTI ratio 0.74 ---- 0.9 FS 32 % - 45 Mitral valve Value Ref PW, ED (H) 1.1 cm 0.6 - Peak E 0.87 m/sec ---- 0.9 Peak A 0.71 m/sec ---- PW/ID, ED 0.26 ------- Decel time 183 ms ---- E', lat libby, TDI 13.1 cm/sec >=10.0 Peak grad, D 3.0 mm Hg ---- E/e', lat libby, 7 ------- Peak E/A ratio 1.2 ---- TDI E', med libby, TDI 14.1 cm/sec >=7.0 Pulmonic valve Value Ref E/e', med libby, 6 ------- Peak v, S 1.18 m/sec ---- TDI Peak grad, S 6.0 mm Hg ---- E', avg, TDI 13.6 cm/sec ------- E/e', avg, TDI 6 <=14 Aortic root Value Ref Root diam 2.9 cm <4.0 LVOT Value Ref Root max diam, ED 2.9 cm <4.0 Peak cheri, S 0.9 m/sec ------- VTI, S 22.9 cm ------- Mean grad, S 2 mm Hg ------- Ventricular septum Value Ref IVS, ED 0.9 cm 0.6 - 0.9 Right ventricle Value Ref JOHNNY, LAX 2.4 cm ------- Legend: (L) and (H) yue values outside specified reference range. Prepared and electronically signed by Cecilia Berg MD 02/07/2019 11:32
--- NOTE | 2019-02-07 14:48 | PN ---
Subjective Date of Service: 02/07/19 Interval History: Patient feels better today, but just in a general sense, patient states that he breathing isn't any better. Patient denies cough, chest pain, dizziness, or other pain. Patient is very anxious to go home and is concerned about having her electricity turned off. Family History: Unchanged from Admission Social History: Unchanged from Admission Past Medical History: Unchanged from Admission Objective Active Medications: Acetaminophen (Tylenol Tab*) 650 mg PO Q4H PRN PRN Reason: MILD PAIN or TEMP > 100.4 Last Admin: 02/07/19 07:12 Dose: 650 mg Al Hydrox/Mg Hydrox/Simethicone (Maalox Plus*) 30 ml PO Q6H PRN PRN Reason: INDIGESTION Albuterol (Ventolin Hfa Inhaler*) 2 puff INH Q4H PRN PRN Reason: SOB/WHEEZING Albuterol/Ipratropium (Duoneb (Albuterol 2.5 Mg/Ipratropium 0.5 Mg)) 1 neb INH [id number] AWAKE [facility] Last Admin: 02/07/19 11:16 Dose: 1 neb Enoxaparin Sodium (Lovenox(*)) 40 mg SUBCUT Q24H [facility] Last Admin: 02/06/19 17:29 Dose: 40 mg Guaifenesin (Mucinex*) 1,200 mg PO BID [facility] Last Admin: 02/07/19 08:05 Dose: 1,200 mg Hydrocortisone (Hytone Cream 1%*) 1 applic TOPICAL BID [facility] Last Admin: 02/07/19 08:07 Dose: 1 applic Ceftriaxone Sodium 1 gm/ (Sodium Chloride) 50 mls @ 100 mls/hr IVPB Q24H [facility] Last Admin: 02/06/19 15:31 Dose: 100 mls/hr Mometasone Furoate/Formoterol Fumar (Dulera 200/5 Mdi*) 2 puff INH BID [facility] Last Admin: 02/07/19 07:17 Dose: 2 puff Ondansetron HCl (Zofran Inj*) 4 mg IV Q4H PRN PRN Reason: NAUSEA/VOMITING Prednisone (Deltasone Tab*) 60 mg PO DAILY [facility] Last Admin: 02/07/19 08:06 Dose: 60 mg Senna (Senokot 8.6 Mg Tab*) 1 tab PO BID PRN PRN Reason: CONSTIPATION Sodium Chloride (Sodium Chloride 0.65% Nasal [place]*) 1 spray BOTH NARES Q4H PRN PRN Reason: nasal irritation Last Admin: 02/06/19 10:43 Dose: 1 spray Tiotropium [place] (Spiriva Respimat 2.5 Mcg) 2 puff INH DAILY [facility] Last Admin: 02/07/19 07:04 Dose: Not Given Vital Signs - 8 hr 02/07/19 02/07/19 02/07/19 07:15 07:19 08:00 Temperature 97.8 F Pulse Rate 61 60 Respiratory 16 16 18 Rate Blood Pressure 119/63 (mmHg) O2 Sat by Pulse 93 95 Oximetry 02/07/19 02/07/19 11:12 11:16 Temperature 97.6 F Pulse Rate 107 78 Respiratory 16 Rate Blood Pressure 127/68 (mmHg) O2 Sat by Pulse 91 94 Oximetry Oxygen Devices in Use Now: Nasal Cannula Appearance: Patient is a 54yo female who appears stated age and is sitting in the bed in [facility]. Eyes: No Scleral Icterus, PERRLA Ears/Nose/Mouth/Throat: NL Teeth, Lips, Gums, Clear Oropharnyx, Mucous Membranes Moist Neck: NL Appearance and Movements; NL JVP, Trachea Midline Respiratory: Symmetrical Chest Expansion and Respiratory Effort, - - Dimininshed , no adventitious lung sounds. Cardiovascular: NL Sounds; No Murmurs; No JVD, RRR, No Edema Abdominal: NL Sounds; No Tenderness; No Distention, No Hepatosplenomegaly Lymphatic: No Cervical Adenopathy Extremities: No Edema, No Clubbing, Cyanosis Skin: No Nodules or Sclerosis, - - Scaly plaques on B/L shins. Neurological: Alert and Oriented x 3, NL Sensation, NL Muscle Strength and Tone , - - CN II-XII intact. Result Diagrams: 02/07/19 05:28 02/07/19 05:28 Microbiology and Other Data: Microbiology 02/01/19 23:25 Gram Stain - Final Sputum 02/01/19 22:42 Legionella Urinary Antigen - Final Urine Negative Legionella Antigen Streptococcus pneumoniae Ag Screen - Final Negative S. pneumo Antigen Assess/Plan/Problems-Billing Assessment: 54 yo white female with PMHx COPD with chronic hypoxic respiratory failure on 2L O2 at home presents with SOB and cough x6 days, found to have pneumonia and COPD exacerbation, improving slowly. - Patient Problems (1) Acute and chronic respiratory failure with hypoxia Current Visit: Yes Status: Acute Code(s): J96.21 - ACUTE AND CHRONIC RESPIRATORY FAILURE WITH HYPOXIA SNOMED Code(s): 33272026 Comment: - Presented with hypoxia, oxygen saturation 60% - COPD exacerbation 2/2 pneumonia - Requires 2L oxygen at home, currently using 6L at rest with Saturation in the low 90s. Oxygen saturation while ambulating was 86% despite 10L oxgyen today - Wheezing improved, no improvement in oxygenation. - Pulmonary consult pending. - Echo unremarkable, though limited study unable to visualize RV - With cortez rash, ? Sarcoidosis, possible need for further lung imaging or PE study. - Continue scheduled duonebs, prednisone, flutter valve, home inhalers, mucinex (2) Pneumonia Current Visit: Yes Status: Acute Code(s): J18.9 - PNEUMONIA, UNSPECIFIED ORGANISM SNOMED Code(s): 026846539 Comment: - Bibasilar consolidations on CXR at admission - Sputum culture with normal mihai - Urine legionella and strep pneumo antigens negative - Continue ceftriaxone. Finished Azithromycin. (3) DVT prophylaxis Current Visit: Yes Status: Acute Code(s): Z29.9 - ENCOUNTER FOR PROPHYLACTIC MEASURES, UNSPECIFIED SNOMED Code(s): 308549854 Comment: - Lovenox SubQ (4) Full code status Current Visit: Yes Status: Acute Code(s): Z78.9 - OTHER SPECIFIED HEALTH STATUS SNOMED Code(s): 438981227 (5) Rash Current Visit: Yes Status: Acute Code(s): R21 - RASH AND OTHER NONSPECIFIC SKIN ERUPTION SNOMED Code(s): 377916178 Comment: - Rash to bilateral LEs intially diagnosed as lichen simplex chronicus - Continue hydrocortisone cream - ? Sarcoidosis, Pending pulmonology consult. Status and Disposition: pending medical improvement. Patient's home oxygen concentrator has maximum 5L setting and currently this is not attainable with ambulation.
[2019-02-07] MEDS: cefTRIAXone(*) 1 GM in NS 0.9% 50 ML* 50 ML IVPB SCH (15:34)
--- NOTE | 2019-02-07 17:10 | CONS ---
PULMONARY CONSULTATION REPORT: DATE OF CONSULT: 02/07/19 CONSULTATION REQUESTED BY: YULI Rod REASON FOR CONSULT: Evaluation of shortness of breath and hypoxemic respiratory failure. HISTORY OF PRESENT ILLNESS: The patient is a 54-year-old female, former smoker , quit about a year ago, with history of COPD. The patient is on O2 at 2 L at home. The patient was brought in for evaluation of worsening shortness of breath. The patient reports gradually worsening shortness of breath over the past 2 days. The patient reports having dyspnea even at rest. Her symptoms did not improve with albuterol and she decided to come into the emergency room for evaluation. The patient also reports productive cough over the past 6 days. Cough is productive of yellow to green phlegm. The patient reports feeling hot, denies chills. The patient also has been having rib pain. Denies chest pain, dysuria, change in bowel movements, abdominal pain, nausea, or vomiting. The patient has chronic rash in her lower extremities for the past 2 years. She usually applies steroid cream, which helps with the rash. The patient also reports decreased appetite over the past few days; however, denies significant weight change. Further evaluation in the emergency room included chest x-ray. I personally reviewed chest x-ray with the patient today - evidence of airspace opacities bilaterally at bases. The patient was also found to be having low-grade fever with T-max of 100 in the ED. She was tachycardic and tachypneic. O2 sat was low and has required O2 supplementation with 60% FiO2 on arrival. The patient currently is on 6 L oxygen and has been desatting even on oxygen with exertion. PAST MEDICAL HISTORY: 1. COPD, on oxygen. 2. Diabetes. 3. IN. 4. CVA. 5. Chronic lower extremity rash. PAST SURGICAL HISTORY: Tubal ligation. MEDICATIONS AT HOME: 1. Advair. 2. Ventolin. 3. Albuterol. 4. Tudorza. ALLERGIES: No known drug allergies. FAMILY HISTORY: Father at unknown age of unknown reason. Mother also due to complications of possible internal bleeding. The patient' s sister in 50s with complications related to COPD. SOCIAL HISTORY: The patient is currently on disability. She is a former smoker , quit about a year ago, smoked 1 pack per day for 40 years. Denies alcohol or drug abuse. REVIEW OF SYSTEMS: All 12 systems reviewed and as per HPI. PHYSICAL EXAM: The patient is sitting in bed, in no apparent distress. Vital Signs: Temperature 97.6, pulse 64 beats per minute, respiratory rate 16 per minute, O2 sat 93% on 6 L. HEENT: Pupils equal, reactive to light. Mucous membranes moist. Lungs: Diminished air entry bilaterally. Extremities: Normal range of motion. Skin: Lower extremity rash with chronic skin changes. Neuro: Alert, awake, oriented x3. No focal deficits. DIAGNOSTIC STUDIES/LAB DATA: WBC count 10.6, hemoglobin 16.3, hematocrit 49, platelet count 269. Blood gas analysis: 7.34 pH, pCO2 of 56, pO2 of 172, bicarb 27, O2 sat 100%. Sodium 139, potassium 3.9, chloride 102, bicarb 30, BUN 17, creatinine 0.65. Chest x-ray as described above in HPI. Echocardiogram is suggestive of diastolic dysfunction. IMPRESSION AND RECOMMENDATIONS: 54-year-old female, smoker with significant smoking history, admitted with worsening shortness of breath and hypoxemic respiratory failure. The patient is requiring high FiO2, significantly dyspneic and hypoxemic with minimal exertion even on oxygen. The patient appears to be having chronic hypoxemia given significantly elevated hemoglobin suggestive of some evidence of polycythemia. The patient with bilateral pneumonia that could be resulting in airspace opacities and those airspace opacities might be resulting in V/Q mismatch and hypoxemic respiratory failure. No wheezing on auscultation. The patient is having difficulty expectorating the phlegm. Will order MetaNeb to help mobilize phlegm to help improve her O2 saturations. Continue with bronchodilators. If she did not improve with MetaNebs, will obtain CTA of the chest. Thank you for allowing me to participate in the care of your patient. Will follow up with you. [id number]/[facility] #: [id number] SORIN
[2019-02-07] MEDS: Enoxaparin(*) 40 MG/0.4 ML SYR SUBCUT SCH (20:05)
[2019-02-08] MEDS: Saline NASAL SPRAY 0.65%* BTL BOTH NARES PRN (03:09)
[2019-02-08] MEDS: Albuterol/Ipratropium NEB.SOL* Albuterol 2.5 MG/Ipratropium 0.5 MG 3 ML INH SCH ×5 (03:36→20:28)
[2019-02-08] MEDS: Mometasone/Formoter 200/5 MDI INH SCH ×2 (07:29→20:28)
[2019-02-08] MEDS: guaiFENesin ER TAB 600 MG PO SCH ×2 (09:12→20:38)
[2019-02-08] MEDS: predniSONE TAB* 20 MG PO SCH (09:12)
[2019-02-08] MEDS: Hydrocortisone 1% CREAM* 30 GM TUBE TOPICAL SCH ×2 (09:13→20:38)
[2019-02-08] MEDS: Acetaminophen TAB* 325 MG PO PRN (09:22)
--- NOTE | 2019-02-08 15:06 | PN ---
Progress Note - Progress Note Date of Service: 02/08/19 - Pulm f/u note Note: Pt seen and examined at bedside. Pt reports feeling less SOB. Anxious to go home. Pt still requiring high FiO2 and has been desaturating with minimal movement. Able to expectorate phleghm with metanebs Active Medications Generic Name Dose Route Start Last Admin Trade Name Freq PRN Reason Stop Dose Admin Acetaminophen 650 mg 02/01/19 17:06 02/08/19 09:22 Tylenol Tab* PO 650 mg Q4H PRN Administration MILD PAIN or TEMP > 100.4 Al Hydrox/Mg Hydrox/Simethicone 30 ml 02/01/19 17:06 Maalox Plus* PO Q6H PRN INDIGESTION Albuterol 2 puff 02/01/19 17:10 Ventolin Hfa Inhaler* INH Q4H PRN SOB/WHEEZING Albuterol/Ipratropium 1 neb 02/01/19 19:00 02/08/19 10:50 Duoneb (Albuterol 2.5 Mg/Ipratropium 0.5 Mg) INH 1 neb [id number] AWAKE [facility] Administration Enoxaparin Sodium 40 mg 02/01/19 18:00 02/07/19 20:05 Lovenox(*) SUBCUT 40 mg Q24H [facility] Administration Guaifenesin 1,200 mg 02/04/19 21:00 02/08/19 09:12 Mucinex* PO 1,200 mg BID [facility] Administration Hydrocortisone 1 applic 02/01/19 21:00 02/08/19 09:13 Hytone Cream 1%* TOPICAL 1 applic BID [facility] Administration Ceftriaxone Sodium 1 gm/ 50 mls @ 100 mls/hr 02/02/19 15:00 02/07/19 15:34 Sodium Chloride IVPB 100 mls/hr Q24H [facility] Administration Mometasone Furoate/Formoterol Fumar 2 puff 02/01/19 21:00 02/08/19 07:29 Dulera 200/5 Mdi* INH 2 puff BID [facility] Administration Ondansetron HCl 4 mg 02/01/19 17:06 Zofran Inj* IV Q4H PRN NAUSEA/VOMITING Prednisone 60 mg 02/02/19 09:00 02/08/19 09:12 Deltasone Tab* PO 60 mg DAILY [facility] Administration Senna 1 tab 02/01/19 17:06 Senokot 8.6 Mg Tab* PO BID PRN CONSTIPATION Sodium Chloride 1 spray 02/04/19 16:13 02/08/19 03:09 Sodium Chloride 0.65% Nasal [place]* BOTH NARES 1 spray Q4H PRN Administration nasal irritation Tiotropium [place] 2 puff 02/02/19 15:00 02/07/19 07:04 Spiriva Respimat 2.5 Mcg INH Not Given DAILY [facility] Vital Signs Temp Pulse Resp BP Pulse Ox 97.9 F 78 22 113/57 80 02/08/19 11:15 02/08/19 11:15 02/08/19 11:15 02/08/19 11:15 02/08/19 14:11 O/E: Pt in NAD HEENT: PERRLA, no JVD Lungs: Diminished air entry, no wheeze, crackles at bases b/l CVS: S1, S2+ Abd: Soft, BS+ Ext: Normal ROM Skin: Rash on LE extensor aspect Neuro: No focal deficits Labs: No new labs I/R: 54 yo white female with PMHx COPD with chronic hypoxic respiratory failure on 2L O2 at home presents with SOB and cough x6 days, found to have pneumonia and COPD exacerbation. Pt with acute on chronic hypoxic resp failure, still requiring 4L at rest and 5-6L with exertion Pt able to expectorate phleghm with metanebs Reason for hypoxia not clear- No wheeze preset. Pt with crackles at bases, will try dose ofLasix. Will need to r/o PE Will order CTA Will obtain ABG as previous VBG showed high PO2 than expected with hypoxia She has polycythemia indicating concern with chronic hypoxia and possible CO exposure from smoking Smoking cessation education provided c/w bronchodilators OOB to chair D/w with pt, John Wood NP
[2019-02-08] MEDS ORDERED: Iohexol 350* (CONTRAST) 500 ML MDV IV ONE (15:42)
[2019-02-08] MEDS: cefTRIAXone(*) 1 GM in NS 0.9% 50 ML* 50 ML IVPB SCH (16:19)
[2019-02-08] MEDS: SPIRIVA Respimat* (tiotropium) 2.5 mcg/inh Inhaler INH SCH (17:10)
--- NOTE | 2019-02-08 17:16 | PN ---
Subjective Date of Service: 02/08/19 Interval History: Patient is only minimally SOB with activity. Minimal cough with metanebs. Patient denies CP, SOB, Dizziness, N/V, abdominal pain, diarrhea, or other pain. Patient is anxious to go home. Family History: Unchanged from Admission Social History: Unchanged from Admission Past Medical History: Unchanged from Admission Objective Active Medications: Acetaminophen (Tylenol Tab*) 650 mg PO Q4H PRN PRN Reason: MILD PAIN or TEMP > 100.4 Last Admin: 02/08/19 09:22 Dose: 650 mg Al Hydrox/Mg Hydrox/Simethicone (Maalox Plus*) 30 ml PO Q6H PRN PRN Reason: INDIGESTION Albuterol (Ventolin Hfa Inhaler*) 2 puff INH Q4H PRN PRN Reason: SOB/WHEEZING Albuterol/Ipratropium (Duoneb (Albuterol 2.5 Mg/Ipratropium 0.5 Mg)) 1 neb INH [id number] AWAKE [facility] Last Admin: 02/08/19 16:08 Dose: 1 neb Enoxaparin Sodium (Lovenox(*)) 40 mg SUBCUT Q24H [facility] Last Admin: 02/07/19 20:05 Dose: 40 mg Guaifenesin (Mucinex*) 1,200 mg PO BID [facility] Last Admin: 02/08/19 09:12 Dose: 1,200 mg Hydrocortisone (Hytone Cream 1%*) 1 applic TOPICAL BID [facility] Last Admin: 02/08/19 09:13 Dose: 1 applic Ceftriaxone Sodium 1 gm/ (Sodium Chloride) 50 mls @ 100 mls/hr IVPB Q24H [facility] Last Admin: 02/08/19 16:19 Dose: 100 mls/hr Mometasone Furoate/Formoterol Fumar (Dulera 200/5 Mdi*) 2 puff INH BID [facility] Last Admin: 02/08/19 07:29 Dose: 2 puff Ondansetron HCl (Zofran Inj*) 4 mg IV Q4H PRN PRN Reason: NAUSEA/VOMITING Prednisone (Deltasone Tab*) 60 mg PO DAILY [facility] Last Admin: 02/08/19 09:12 Dose: 60 mg Senna (Senokot 8.6 Mg Tab*) 1 tab PO BID PRN PRN Reason: CONSTIPATION Sodium Chloride (Sodium Chloride 0.65% Nasal [place]*) 1 spray BOTH NARES Q4H PRN PRN Reason: nasal irritation Last Admin: 02/08/19 03:09 Dose: 1 spray Tiotropium [place] (Spiriva Respimat 2.5 Mcg) 2 puff INH DAILY [facility] Last Admin: 02/08/19 17:10 Dose: Not Given Vital Signs - 8 hr 02/08/19 02/08/19 02/08/19 10:55 11:15 14:11 Temperature 97.9 F Pulse Rate 78 78 Respiratory 18 22 Rate Blood Pressure 113/57 (mmHg) O2 Sat by Pulse 99 90 80 Oximetry 02/08/19 02/08/19 15:55 16:12 Temperature 97.6 F Pulse Rate 88 85 Respiratory 20 16 Rate Blood Pressure 112/66 (mmHg) O2 Sat by Pulse 91 92 Oximetry Oxygen Devices in Use Now: Nasal Cannula Appearance: Patient is a 54yo female who appears stated age and is sitting in the bed in [facility]. Eyes: No Scleral Icterus, PERRLA Ears/Nose/Mouth/Throat: NL Teeth, Lips, Gums, Clear Oropharnyx, Mucous Membranes Moist Neck: NL Appearance and Movements; NL JVP, Trachea Midline Respiratory: Symmetrical Chest Expansion and Respiratory Effort, Clear to Auscultation, - - Diminished. Cardiovascular: NL Sounds; No Murmurs; No JVD, RRR, No Edema Abdominal: NL Sounds; No Tenderness; No Distention, No Hepatosplenomegaly Lymphatic: No Cervical Adenopathy Extremities: No Edema, No Clubbing, Cyanosis Skin: No Rash or Ulcers, No Nodules or Sclerosis Neurological: Alert and Oriented x 3, NL Sensation, NL Muscle Strength and Tone , - - CN II-XII intact. Result Diagrams: 02/07/19 05:28 02/07/19 05:28 Microbiology and Other Data: Microbiology 02/01/19 23:25 Gram Stain - Final Sputum 02/01/19 22:42 Legionella Urinary Antigen - Final Urine Negative Legionella Antigen Streptococcus pneumoniae Ag Screen - Final Negative S. pneumo Antigen Assess/Plan/Problems-Billing Assessment: 54 yo white female with PMHx COPD with chronic hypoxic respiratory failure on 2L O2 at home presents with SOB and cough x6 days, found to have pneumonia and COPD exacerbation, improving slowly. - Patient Problems (1) Acute and chronic respiratory failure with hypoxia Current Visit: Yes Status: Acute Code(s): J96.21 - ACUTE AND CHRONIC RESPIRATORY FAILURE WITH HYPOXIA SNOMED Code(s): 43779470 Comment: - Presented with hypoxia, oxygen saturation 60% - COPD exacerbation 2/2 pneumonia - Requires 2L oxygen at home, currently using 4L at rest with Saturation in the low 90s. Oxygen saturation while ambulating was 80% despite 10L oxgyen today - Wheezing improved, minimal improvement in oxygenation. - Pulmonary consult appreciated. - CTA shows no PE, lympadenopathy or other infiltrate. Advanced Emphysema - Echo unremarkable, though limited study unable to visualize RV - Continue scheduled duonebs, prednisone, flutter valve, home inhalers, mucinex , Metanebs. (2) Pneumonia Current Visit: Yes Status: Acute Code(s): J18.9 - PNEUMONIA, UNSPECIFIED ORGANISM SNOMED Code(s): 110004043 Comment: - Bibasilar consolidations on CXR at admission - Sputum culture with normal mihai - Urine legionella and strep pneumo antigens negative - Finished Azithromycin and Ceftriaxone. (3) DVT prophylaxis Current Visit: Yes Status: Acute Code(s): Z29.9 - ENCOUNTER FOR PROPHYLACTIC MEASURES, UNSPECIFIED SNOMED Code(s): 341118982 Comment: - Lovenox SubQ (4) Full code status Current Visit: Yes Status: Acute Code(s): Z78.9 - OTHER SPECIFIED HEALTH STATUS SNOMED Code(s): 944888889 (5) Rash Current Visit: Yes Status: Acute Code(s): R21 - RASH AND OTHER NONSPECIFIC SKIN ERUPTION SNOMED Code(s): 869178504 Comment: - Rash to bilateral LEs intially diagnosed as lichen simplex chronicus - Continue hydrocortisone cream Status and Disposition: pending medical improvement. Patient's home oxygen concentrator has maximum 5L setting and currently this is not attainable with ambulation.
[2019-02-08] MEDS: Enoxaparin(*) 40 MG/0.4 ML SYR SUBCUT SCH (17:23)
[2019-02-09] MEDS: Albuterol/Ipratropium NEB.SOL* Albuterol 2.5 MG/Ipratropium 0.5 MG 3 ML INH SCH ×5 (00:12→15:16)
[2019-02-09 05:24] LABS: ABS Lymphocytes 2.2 10^3/ul (1.0-4.8); ABS Monocytes 0.6 10^3/ul (0-0.8); ABS Neutrophils 8.6 10^3/ul (1.5-7.7); Eosinophil % 0.4 %; Hematocrit 48 % (35-47); Hemoglobin 15.8 g/dL (12.0-16.0); Lymphocyte % 18.9 %; Mean Corpuscular HGB Conc 33 g/dL (31-36); Mean Corpuscular Hemoglobin 31 pg (27-31); Mean Corpuscular Volume 95 fL (80-97); Mean Platelet Volume 7.8 fL (7.4-10.4); Nucleated Red Blood Cells % 0.1; Platelet Count 287 10^3/uL (150-450); Red Blood Count 5.11 10^6 /uL (3.70-4.87); Red Cell Distribution Width 14 % (10-15); White Blood Count 11.4 10^3/uL (3.5-10.8)
[2019-02-09 05:42] LABS: BUN/Creatinine Ratio 30.2 (8-20); Calcium 9.5 mg/dL (8.6-10.3); EGFR African American 118.3 (>60); EGFR Non-African American 97.8 (>60); Potassium 4.2 mmol/L (3.5-5.0)
[2019-02-09] MEDS: Mometasone/Formoter 200/5 MDI INH SCH (07:15)
[2019-02-09] MEDS: guaiFENesin ER TAB 600 MG PO SCH ×2 (08:32→21:15)
[2019-02-09] MEDS: predniSONE TAB* 20 MG PO SCH (08:32)
[2019-02-09] MEDS: Hydrocortisone 1% CREAM* 30 GM TUBE TOPICAL SCH ×2 (08:34→23:13)
[2019-02-09] MEDS: SPIRIVA Respimat* (tiotropium) 2.5 mcg/inh Inhaler INH SCH (10:05)
[2019-02-09] MEDS: Nystatin SUSPENSION* 100000 UNITS/ML 5 ML UDC PO SCH ×3 (14:36→23:10)
--- NOTE | 2019-02-09 14:50 | PN ---
Subjective Date of Service: 02/09/19 Interval History: Patient denies any complaints today besides itching in B/L LE. Patient denies CP , SOB, dizziness, N/V, abdominal pain, diarrhea, F/C, cough. Family History: Unchanged from Admission Social History: Unchanged from Admission Past Medical History: Unchanged from Admission Objective Active Medications: Acetaminophen (Tylenol Tab*) 650 mg PO Q4H PRN PRN Reason: MILD PAIN or TEMP > 100.4 Last Admin: 02/08/19 09:22 Dose: 650 mg Al Hydrox/Mg Hydrox/Simethicone (Maalox Plus*) 30 ml PO Q6H PRN PRN Reason: INDIGESTION Albuterol (Ventolin Hfa Inhaler*) 2 puff INH Q4H PRN PRN Reason: SOB/WHEEZING Albuterol/Ipratropium (Duoneb (Albuterol 2.5 Mg/Ipratropium 0.5 Mg)) 1 neb INH [id number] AWAKE [facility] Last Admin: 02/09/19 11:25 Dose: 1 neb Enoxaparin Sodium (Lovenox(*)) 40 mg SUBCUT Q24H [facility] Last Admin: 02/08/19 17:23 Dose: 40 mg Guaifenesin (Mucinex*) 1,200 mg PO BID [facility] Last Admin: 02/09/19 08:32 Dose: 1,200 mg Hydrocortisone (Hytone Cream 1%*) 1 applic TOPICAL BID [facility] Last Admin: 02/09/19 08:34 Dose: 1 applic Methylprednisolone Sodium Succinate (Solu-Medrol 125mg *) 60 mg IV Q12H [facility] Mometasone Furoate/Formoterol Fumar (Dulera 200/5 Mdi*) 2 puff INH BID [facility] Last Admin: 02/09/19 07:15 Dose: 2 puff Nystatin (Nystatin Suspension*) 200,000 units PO QID [facility] Last Admin: 02/09/19 14:36 Dose: 200,000 units Ondansetron HCl (Zofran Inj*) 4 mg IV Q4H PRN PRN Reason: NAUSEA/VOMITING Senna (Senokot 8.6 Mg Tab*) 1 tab PO BID PRN PRN Reason: CONSTIPATION Sodium Chloride (Sodium Chloride 0.65% Nasal [place]*) 1 spray BOTH NARES Q4H PRN PRN Reason: nasal irritation Last Admin: 02/08/19 03:09 Dose: 1 spray Tiotropium [place] (Spiriva Respimat 2.5 Mcg) 2 puff INH DAILY [facility] Last Admin: 02/09/19 10:05 Dose: Not Given Vital Signs - 8 hr 02/09/19 02/09/19 02/09/19 07:16 07:31 08:00 Temperature 97.8 F Pulse Rate 63 65 Respiratory 18 16 16 Rate Blood Pressure 107/59 (mmHg) O2 Sat by Pulse 96 93 Oximetry 02/09/19 02/09/19 11:06 11:27 Temperature 97.3 F Pulse Rate 80 66 Respiratory 16 16 Rate Blood Pressure 98/54 (mmHg) O2 Sat by Pulse 92 97 Oximetry Oxygen Devices in Use Now: Nasal Cannula Appearance: Patient is a 54yo female who appears stated age and is sitting in the bed in [facility]. Eyes: No Scleral Icterus, PERRLA Ears/Nose/Mouth/Throat: NL Teeth, Lips, Gums, Clear Oropharnyx, Mucous Membranes Moist Neck: NL Appearance and Movements; NL JVP, Trachea Midline Respiratory: Symmetrical Chest Expansion and Respiratory Effort, - - Diminished throughout. Cardiovascular: NL Sounds; No Murmurs; No JVD, RRR, No Edema Abdominal: NL Sounds; No Tenderness; No Distention, No Hepatosplenomegaly Lymphatic: No Cervical Adenopathy Extremities: No Edema, No Clubbing, Cyanosis Skin: No Nodules or Sclerosis, - - Tibial Rash B/L, scaly, unchanged. Neurological: Alert and Oriented x 3, NL Sensation, NL Muscle Strength and Tone Result Diagrams: 02/09/19 05:01 02/09/19 05:01 Microbiology and Other Data: Microbiology 02/01/19 23:25 Gram Stain - Final Sputum 02/01/19 22:42 Legionella Urinary Antigen - Final Urine Negative Legionella Antigen Streptococcus pneumoniae Ag Screen - Final Negative S. pneumo Antigen Assess/Plan/Problems-Billing Assessment: 54 yo white female with PMHx COPD with chronic hypoxic respiratory failure on 2L O2 at home presents with SOB and cough x6 days, found to have pneumonia and COPD exacerbation, improving slowly. - Patient Problems (1) Acute and chronic respiratory failure with hypoxia Current Visit: Yes Status: Acute Code(s): J96.21 - ACUTE AND CHRONIC RESPIRATORY FAILURE WITH HYPOXIA SNOMED Code(s): 49849449 Comment: - Presented with hypoxia, oxygen saturation 60% - COPD exacerbation 2/2 pneumonia - Requires 2L oxygen at home, currently using 4.5L at rest with Saturation in the low 90s. Oxygen saturation while ambulating was 88% despite 8L oxgyen today - Wheezing improved, minimal improvement in oxygenation. - Pulmonary consult appreciated. - CTA shows no PE, lympadenopathy or other infiltrate. Advanced Emphysema - Echo unremarkable, though limited study unable to visualize RV - Continue scheduled duonebs, flutter valve, home inhalers, mucinex, Metanebs. - Increase steroids again to attempt to speed recovery. (2) Pneumonia Current Visit: Yes Status: Acute Code(s): J18.9 - PNEUMONIA, UNSPECIFIED ORGANISM SNOMED Code(s): 615383623 Comment: - Bibasilar consolidations on CXR at admission - Sputum culture with normal mihai - Urine legionella and strep pneumo antigens negative - Finished Azithromycin and Ceftriaxone. (3) DVT prophylaxis Current Visit: Yes Status: Acute Code(s): Z29.9 - ENCOUNTER FOR PROPHYLACTIC MEASURES, UNSPECIFIED SNOMED Code(s): 475290897 Comment: - Lovenox SubQ (4) Full code status Current Visit: Yes Status: Acute Code(s): Z78.9 - OTHER SPECIFIED HEALTH STATUS SNOMED Code(s): 369908160 (5) Rash Current Visit: Yes Status: Acute Code(s): R21 - RASH AND OTHER NONSPECIFIC SKIN ERUPTION SNOMED Code(s): 502518023 Comment: - Rash to bilateral LEs intially diagnosed as lichen simplex chronicus - Continue hydrocortisone cream Status and Disposition: pending medical improvement. Patient's home oxygen concentrator has maximum 5L setting and currently this is not attainable with ambulation.
[2019-02-09] MEDS: Enoxaparin(*) 40 MG/0.4 ML SYR SUBCUT SCH (17:56)
[2019-02-09] MEDS: Albuterol 2.5 MG/3 ML NEB.SOL* (0.083%) INH SCH (19:23)
[2019-02-09] MEDS: methylPREDNISolone 125 MG* 2 ML VIAL IV SCH (21:16)
[2019-02-09] MEDS: Acetaminophen TAB* 325 MG PO PRN (23:34)
[2019-02-10] MEDS: Albuterol 2.5 MG/3 ML NEB.SOL* (0.083%) INH SCH ×4 (07:11→20:00)
[2019-02-10] MEDS: Mometasone/Formoter 200/5 MDI INH SCH ×2 (07:11→08:00)
[2019-02-10] MEDS: SPIRIVA Respimat* (tiotropium) 2.5 mcg/inh Inhaler INH SCH (08:00)
[2019-02-10] MEDS: guaiFENesin ER TAB 600 MG PO SCH ×2 (08:54→20:23)
[2019-02-10] MEDS: methylPREDNISolone 125 MG* 2 ML VIAL IV SCH ×2 (08:54→20:23)
[2019-02-10] MEDS: Nystatin SUSPENSION* 100000 UNITS/ML 5 ML UDC PO SCH ×4 (08:58→20:21)
[2019-02-10] MEDS: Hydrocortisone 1% CREAM* 30 GM TUBE TOPICAL SCH ×2 (08:58→21:56)
--- NOTE | 2019-02-10 15:12 | PN ---
Subjective Date of Service: 02/10/19 Interval History: Patient feels much better with the higher dose of steroids. Patient denies F/C, N/V, abdominal pain, cough, CP, dizziness, dysuria, or worsening in her rash. Family History: Unchanged from Admission Social History: Unchanged from Admission Past Medical History: Unchanged from Admission Objective Active Medications: Acetaminophen (Tylenol Tab*) 650 mg PO Q4H PRN PRN Reason: MILD PAIN or TEMP > 100.4 Last Admin: 02/09/19 23:34 Dose: 650 mg Al Hydrox/Mg Hydrox/Simethicone (Maalox Plus*) 30 ml PO Q6H PRN PRN Reason: INDIGESTION Albuterol (Ventolin Hfa Inhaler*) 2 puff INH Q4H PRN PRN Reason: SOB/WHEEZING Albuterol (Ventolin 2.5 Mg/3 Ml Neb.Kaylin*) 2.5 mg INH [id number] AWAKE [facility] Last Admin: 02/10/19 12:10 Dose: 2.5 mg Enoxaparin Sodium (Lovenox(*)) 40 mg SUBCUT Q24H [facility] Last Admin: 02/09/19 17:56 Dose: 40 mg Guaifenesin (Mucinex*) 1,200 mg PO BID [facility] Last Admin: 02/10/19 08:54 Dose: 1,200 mg Hydrocortisone (Hytone Cream 1%*) 1 applic TOPICAL BID [facility] Last Admin: 02/10/19 08:58 Dose: 1 applic Methylprednisolone Sodium Succinate (Solu-Medrol 125mg *) 60 mg IV Q12H [facility] Last Admin: 02/10/19 08:54 Dose: 60 mg Mometasone Furoate/Formoterol Fumar (Dulera 200/5 Mdi*) 2 puff INH BID [facility] Last Admin: 02/10/19 08:00 Dose: 2 puff Nystatin (Nystatin Suspension*) 200,000 units PO QID [facility] Last Admin: 02/10/19 13:16 Dose: Not Given Ondansetron HCl (Zofran Inj*) 4 mg IV Q4H PRN PRN Reason: NAUSEA/VOMITING Senna (Senokot 8.6 Mg Tab*) 1 tab PO BID PRN PRN Reason: CONSTIPATION Sodium Chloride (Sodium Chloride 0.65% Nasal [place]*) 1 spray BOTH NARES Q4H PRN PRN Reason: nasal irritation Last Admin: 02/08/19 03:09 Dose: 1 spray Tiotropium [place] (Spiriva Respimat 2.5 Mcg) 2 puff INH DAILY [facility] Last Admin: 02/10/19 08:00 Dose: 2 puff Vital Signs - 8 hr 02/10/19 02/10/19 02/10/19 07:54 08:00 08:07 Temperature 98.1 F Pulse Rate 51 76 Respiratory 20 16 17 Rate Blood Pressure 121/65 (mmHg) O2 Sat by Pulse 92 90 Oximetry 02/10/19 02/10/19 11:15 12:12 Temperature 98.3 F Pulse Rate 73 72 Respiratory 16 17 Rate Blood Pressure 119/63 (mmHg) O2 Sat by Pulse 91 90 Oximetry Oxygen Devices in Use Now: Nasal Cannula Appearance: Patient is a 54yo female who appears stated age and is sitting in the bed in [facility]. Eyes: No Scleral Icterus, PERRLA Ears/Nose/Mouth/Throat: NL Teeth, Lips, Gums, Clear Oropharnyx, Mucous Membranes Moist Neck: NL Appearance and Movements; NL JVP, Trachea Midline Respiratory: Symmetrical Chest Expansion and Respiratory Effort, - - Diminished. Cardiovascular: NL Sounds; No Murmurs; No JVD, RRR, No Edema Abdominal: NL Sounds; No Tenderness; No Distention, No Hepatosplenomegaly Lymphatic: No Cervical Adenopathy Extremities: No Edema, No Clubbing, Cyanosis Skin: No Rash or Ulcers, No Nodules or Sclerosis Neurological: Alert and Oriented x 3, NL Sensation, NL Gait, NL Muscle Strength and Tone, - - CN II-XII intact Result Diagrams: 02/09/19 05:01 02/09/19 05:01 Microbiology and Other Data: Microbiology 02/01/19 23:25 Gram Stain - Final Sputum 02/01/19 22:42 Legionella Urinary Antigen - Final Urine Negative Legionella Antigen Streptococcus pneumoniae Ag Screen - Final Negative S. pneumo Antigen Assess/Plan/Problems-Billing Assessment: 54 yo white female with PMHx COPD with chronic hypoxic respiratory failure on 2L O2 at home presents with SOB and cough x6 days, found to have pneumonia and COPD exacerbation, improving slowly. - Patient Problems (1) Acute and chronic respiratory failure with hypoxia Current Visit: Yes Status: Acute Code(s): J96.21 - ACUTE AND CHRONIC RESPIRATORY FAILURE WITH HYPOXIA SNOMED Code(s): 73548704 Comment: - Presented with hypoxia, oxygen saturation 60% - COPD exacerbation 2/2 pneumonia - Requires 2L oxygen at home, currently using 4.5L at rest with Saturation in the low 90s. Oxygen saturation while ambulating was 87% despite 6L oxgyen today - Wheezing improved, minimal improvement in oxygenation. - Pulmonary consult appreciated. - CTA shows no PE, lympadenopathy or other infiltrate. Advanced Emphysema - Echo unremarkable, though limited study unable to visualize RV - Continue scheduled duonebs, flutter valve, home inhalers, mucinex, Metanebs. - Increase steroids again to attempt to speed recovery. - Incremental improvement. (2) Pneumonia Current Visit: Yes Status: Acute Code(s): J18.9 - PNEUMONIA, UNSPECIFIED ORGANISM SNOMED Code(s): 565264884 Comment: - Bibasilar consolidations on CXR at admission - Sputum culture with normal mihai - Urine legionella and strep pneumo antigens negative - Finished Azithromycin and Ceftriaxone. (3) DVT prophylaxis Current Visit: Yes Status: Acute Code(s): Z29.9 - ENCOUNTER FOR PROPHYLACTIC MEASURES, UNSPECIFIED SNOMED Code(s): 389035704 Comment: - Lovenox SubQ (4) Full code status Current Visit: Yes Status: Acute Code(s): Z78.9 - OTHER SPECIFIED HEALTH STATUS SNOMED Code(s): 274135542 (5) Rash Current Visit: Yes Status: Acute Code(s): R21 - RASH AND OTHER NONSPECIFIC SKIN ERUPTION SNOMED Code(s): 105924320 Comment: - Rash to bilateral LEs intially diagnosed as lichen simplex chronicus - Continue hydrocortisone cream Status and Disposition: pending medical improvement. Patient's home oxygen concentrator has maximum 5L setting and currently this is not attainable with ambulation. Patient is very close to being able to be discharged.
[2019-02-10] MEDS: Enoxaparin(*) 40 MG/0.4 ML SYR SUBCUT SCH (17:35)
[2019-02-11] MEDS: Albuterol 2.5 MG/3 ML NEB.SOL* (0.083%) INH SCH ×2 (00:11→08:00)
[2019-02-11] MEDS: Mometasone/Formoter 200/5 MDI INH SCH ×2 (06:18→08:02)
[2019-02-11] MEDS: methylPREDNISolone 125 MG* 2 ML VIAL IV SCH (07:40)
[2019-02-11] MEDS: guaiFENesin ER TAB 600 MG PO SCH (07:41)
[2019-02-11] MEDS: Nystatin SUSPENSION* 100000 UNITS/ML 5 ML UDC PO SCH (07:42)
[2019-02-11] MEDS: Hydrocortisone 1% CREAM* 30 GM TUBE TOPICAL SCH (07:47)
[2019-02-11 07:52] VITALS: BP 113/69
[2019-02-11] MEDS: SPIRIVA Respimat* (tiotropium) 2.5 mcg/inh Inhaler INH SCH (08:02)
--- NOTE | 2019-02-11 15:09 | DS ---
DISCHARGE SUMMARY: DATE OF ADMISSION: 02/01/19 DATE OF DISCHARGE: 02/11/19 PRIMARY CARE PROVIDER: Dr. Max. MY ATTENDING WHILE IN THE HOSPITAL: Dr. Justin Carballo.* (DICTATED BY YULI SOTELO) CONSULTING WORKING MANAGER: Dr. Lily Willard. PRIMARY DISCHARGE DIAGNOSES: 1. Chronic obstructive pulmonary disease exacerbation. 2. Community-acquired pneumonia. 3. Sepsis, acute on chronic hypoxic respiratory failure. SECONDARY DISCHARGE DIAGNOSIS: 1. Chronic hypoxic respiratory failure. 2. Likely atopic dermatitis giving rise to lichen simplex chronicus. 3. Prediabetes. STUDIES DONE WHILE IN THE HOSPITAL: Chest x-ray from 02/01/19 read as patchy bibasilar infiltrates. EKG from 02/01/19 showed sinus tachycardia. No ST segment elevation or compression. No hypertrophy or enlargement. Rate of 118, QTc of 429. Low amplitude, normal axis. Chest thorax CTA from 02/08/19 read as emphysema, no pulmonary arterial filling defect. Transthoracic echocardiogram from 02/07/19 read as left ventricular chamber size is normal. Systolic function is lower limits of normal, estimated ejection fraction 50% to 55%. Doppler parameters consistent with abnormal left ventricular relaxation. Grade 1 diastolic dysfunction. Mitral valve, no significant regurgitation. Tricuspid valve not well visualized on previous echocardiogram and ventricle is not well visualized. Pulmonary artery is not well visualized. MEDICATIONS AT DISCHARGE: 1. Guaifenesin 1200 mg p.o. b.i.d. 2. Prednisone 60 mg p.o. daily with taper, 60 mg for 4 days, 40 mg for 4 days, 20 mg for 4 days, and 10 mg for 4 days, and then discontinuation. 3. Aclidinium bromide 1 puff inhalation b.i.d. 4. Albuterol nebulizer 3 mL inhalation t.i.d. as needed. 5. Albuterol inhaler 2 puffs inhalation q.4 hours as needed. 6. Advair Diskus 500/50 one puff inhalation b.i.d. New medications at discharge: 1. Prednisone. 2. Guaifenesin. Medications discontinued at discharge: None. HOSPITAL COURSE: This is a brief summary of the patient's presentation. For more details, please see the history and physical from YULI Drake on . In brief, the patient is a 54-year-old female with past medical history significant for the above, who is a poor medical staff coordinator and presents in to the emergency department with shortness of breath worsening for 6 days. No response to her nebulizer and productive cough. The patient also complained of chronic rash on her cortez, which is believe to due to Lichen simplex chronicus. The patient had a tachycardia, elevated temperature and infiltrates on chest x- ray. The patient was admitted to the hospital and treated simultaneously for COPD exacerbation and community-acquired pneumonia with high dose IV corticosteroids, inhalers, and ceftriaxone and azithromycin. The patient initially had 15 L of oxygen to maintain saturation above 90%. This was able to be tapered down slowly. The patient had markedly slow improvement with her oxygen saturations. The patient did have significant improvements in her lower extremity rash, pruritus with steroids both topically and systemically. The patient had no pathologic sputum culture and negative legionella and urine Strep pneumoniae antigens. The patient had blood cultures drawn during this hospitalization. The patient is able to be weaned down to 6 L of oxygen at rest to maintain her oxygen saturation above 90%, however, with activity, the patient's saturation consistently went into the low to mid 80s with unable to be brought above 90 even with 10 L of oxygen. Due to concern for secondary process, a transthoracic echocardiogram and a chest thorax CTA were obtained and read as above after the pulmonary consultation. This showed no signs of lymphadenopathy, mass, or heart failure but did show signs of advanced emphysema and alpha 1 antitrypsin level sent and is pending at the time of this dictation. The patient's steroids were initially tapered from IV to 60 mg prednisone daily. However, given her lack of improvement, the patient's steroids were again increased to Solu-Medrol 60 mg twice daily. With this, her oxygen requirement decreased significantly. Again, on the day of discharge, the patient was able to walk entirely around the unit on 5 L of oxygen, which is high as her home concentrator can go with her oxygen saturation staying above 90% at all times. The patient states she felt much better than on admission and was back to her baseline. The patient was stable and amenable for discharge on 02/11/19 to home. PHYSICAL EXAM ON THE DAY OF DISCHARGE: General: The patient is a 54-year-old female, who appears older than stated age and sitting in the bed, in no acute distress. Vital Signs: At the time of evaluation, temperature 97.7, pulse rate 55, respiratory rate 16, oxygen saturation 93% on 4 L, blood pressure 113/ 69. HEENT: Head normocephalic, atraumatic. Sclerae anicteric. No conjunctival injection. Nasal mucosa moist. Oral mucosa moist. White plaque consistent with thrush in the posterior pharynx. Cardiac: Regular rate and rhythm. No clicks, murmurs, gallops, or rubs. Pulses are 2+ in the bilateral dorsalis pedis, posterior tibialis, and radial areas. Respiratory: Diminished throughout. No wheezes, rales, or rhonchi. Good air exchange bilaterally. Abdomen: Soft, nontender, nondistended. Bowel sounds present and normoactive in all 4 quadrants. No hepatosplenomegaly. No abdominal bruits auscultated. No hepatojugular reflux. Genitourinary: No suprapubic or CVA tenderness. Skin : Plaques on the bilateral shins with scaling consistent with lichen simplex chronicus. Neuro: Cranial nerves II through XII intact. No focal deficits. Alert and oriented x3. Psychiatric: Pleasant and cooperative. DISCHARGE PLAN BY PROBLEM: 1. Acute on chronic respiratory failure, COPD exacerbation. The patient was polycythemic on admission making it likely that she was chronically hypoxic and her 2 L of oxygen at home were not sufficient. The patient will be discharged on 4 L of oxygen and she should be currently monitored through primary care provider and aeronautical research engineer for the appropriate chronic dosing for her home oxygen. The patient at this point should use 5 L with activity and this should be again continued to be monitored through her primary care provider and her aeronautical research engineer. The patient should follow up with primary care provider in 1 week and her aeronautical research engineer, Dr. Willard within 1 month for a formal PFTs and optimization of her respiratory status. The patient will be continued on triple inhaler therapy as above and steroids with taper as well as as-needed inhalers. Alpha 1 antitrypsin levels should be followed up on. 2. Pneumonia. The patient's pneumonia likely led to her COPD exacerbation. This has resolved at this point after 7 days of appropriate antibiotics. 3. Prediabetes. The patient had a hemoglobin A1c of 5.8 on 02/02/19, which should be followed up with her primary care provider. The patient's blood sugars will likely be poorly controlled while she is on high doses of steroids. DISPOSITION: Home. CONDITION: Stable. DIET: Regular, unrestricted. ACTIVITY: As tolerated. TIME SPENT: Approximately 60 minutes was spent on the discharge of this patient , 30 of which was spent [id number] with the patient obtaining history and physical and discussing treatment plan. YULI SOTELO [id number]/[facility] #: [id number] SROIN
== END 2019-02-11 10:50 | disposition home or self-care (01) | DRG 720 ==
LOC: ED 13:33 → MED 17:06
PROVIDERS: ADMIT Internal Medicine; ATTEND Internal Medicine
DX: A41.9 Sepsis, unspecified organism (principal); J18.9 Pneumonia, unspecified organism; J96.21 Acute and chronic respiratory failure with hypoxia; J44.0 Chronic obstructive pulmonary disease with (acute) lower respiratory infection; J44.1 Chronic obstructive pulmonary disease with (acute) exacerbation; L20.9 Atopic dermatitis, unspecified; E66.3 Overweight; E11.9 Type 2 diabetes mellitus without complications; L28.0 Lichen simplex chronicus; T38.0X5A Adverse effect of glucocorticoids and synthetic analogues, initial encounter; Z87.891 Personal history of nicotine dependence; Z68.30 Body mass index [BMI] 30.0-30.9, adult; I25.2 Old myocardial infarction; Z86.73 Personal history of transient ischemic attack (TIA), and cerebral infarction without residual deficits; Z99.81 Dependence on supplemental oxygen; Z79.899 Other long term (current) drug therapy; Y92.9 Unspecified place or not applicable
CPT/HCPCS: 36415; 36600; 71045; 71275; 80048; 82103; 82803; 83036; 83735; 84484; 85025; 87070; 87205; 87899; 93005; 93306; 94640; 94668; 96374; 96375; 99284; A9270-GY; C8929; J0456; J0696; J1650; J2930; J3535; J7512; J7611; Q9967

== ENCOUNTER 2023-10-04 16:41 | Inpatient (IN) ==
[2023-10-04 18:23] LABS: Hematocrit 57.7 % (35-45); Hemoglobin 18.2 g/dL (11.5-14.3); Mean Corpuscular Hemoglobin 29.1 pg (27-33); Mean Corpuscular Hgb Conc 31.6 g/dL (31-36); Mean Corpuscular Volume 92.1 fL (80-97); Mean Platelet Volume 9.2 fL (7.5-11.2); Platelet Count 168 10^3/uL (150-450); Red Blood Count 6.26 10^6/uL (3.63-4.92); Red Cell Distribution Width 16.7 % (12-17); White Blood Count 6.7 10^3/uL (3.8-11.8)
[2023-10-04 18:43] LABS: Activated Partial Thrombo Time 35.1 seconds (26.0-38.0); INR 1.05 (0.83-1.13)
[2023-10-04 18:46] LABS: Venous Bicarbonate HCO3 31.8 mmol/L (24-28)
[2023-10-04 18:52] LABS: ABS Lymphocytes 2.4 10^3/uL (1.0-4.8); ABS Monocytes 0.6 10^3/uL (0.0-0.9); ABS Neutrophils 3.7 10^3/uL (1.5-7.6); Eosinophil % 0.5 %; Lymphocyte % 35.2 %
[2023-10-04 18:57] LABS: Albumin 3.4 g/dL (3.2-5.2); C Reactive Protein 11.21 mg/L (<8.01); Calcium 8.9 mg/dL (8.6-10.3); Creatinine, Serum 0.85 mg/dL (0.51-0.95); Globulin 3.3 g/dL (2-4); Potassium 5.1 mmol/L (3.5-5.0); Total Bilirubin 0.7 mg/dL (0.2-1.0); Total Protein 6.7 g/dL (6.4-8.9); eGFR CKD-EPI 78.4 (>60)
[2023-10-04] MEDS: Albuterol/Ipratropium NEB.SOL (2.5/0.5 MG) 3 ML NEB.SOLN INH ONE (19:27)
[2023-10-04] MEDS: Furosemide 40 mg/4 ml IV VIAL IV ONE (19:27)
[2023-10-04] MEDS ORDERED: Al Hydrox/Mg Hydrox/Simet LIQ 30 ML UDC PO PRN (19:42)
[2023-10-04 19:46] LABS: High Sensitivity Troponin 1 Hr 24 pg/mL (<15)
[2023-10-04] MEDS ORDERED: Albuterol/Ipratropium NEB.SOL (2.5/0.5 MG) 3 ML NEB.SOLN INH PRN (19:53)
[2023-10-04] MEDS: methylPREDNISolone SOD SUCC 125 mg 2 ML VIAL IV ONE (19:54)
[2023-10-04] MEDS: Enoxaparin 40 MG/0.4 ML SYR SUBCUT SCH (19:54)
[2023-10-04 19:56] LABS: Urine Appearance Extra Turbid; Urine Bilirubin Negative (Negative); Urine Blood 3+ (Negative); Urine Glucose Negative (Negative); Urine Ketones Negative (Negative); Urine Nitrite Negative (Negative); Urine Protein Trace (Negative); Urine Specific Gravity 1.011 (1.002-1.030); Urine Urobilinogen Negative (Negative); Urine pH 5.5 (5.0-8.0)
[2023-10-04 20:05] LABS: Urine Bacteria Absent /HPF (Absent); Urine Red Blood Cell 3+(>10/hpf) /HPF (0-Trace); Urine Squamous Epithelial Cell Present /HPF (Absent); Urine White Blood Cell 3+(>20/hpf) /HPF (0-Trace)
[2023-10-04 20:41] LABS: Urine Color Light-Yellow
[2023-10-05 06:19] LABS: Calcium 9.1 mg/dL (8.6-10.3); Creatinine, Serum 0.99 mg/dL (0.51-0.95); Potassium 4.7 mmol/L (3.5-5.0); eGFR CKD-EPI 65.3 (>60)
[2023-10-05 07:29] LABS: ABS Lymphocytes 0.7 10^3/uL (1.0-4.8); ABS Neutrophils 2.5 10^3/uL (1.5-7.6); Hematocrit 58.6 % (35-45); Lymphocyte % 22.7 %; Mean Corpuscular Hemoglobin 30.3 pg (27-33); Mean Corpuscular Hgb Conc 32.4 g/dL (31-36); Mean Corpuscular Volume 93.6 fL (80-97); Mean Platelet Volume 9.4 fL (7.5-11.2); Platelet Count 149 10^3/uL (150-450); Red Blood Count 6.26 10^6/uL (3.63-4.92); Red Cell Distribution Width 16.7 % (12-17); White Blood Count 3.2 10^3/uL (3.8-11.8)
[2023-10-05] MEDS ORDERED: methylPREDNISolone SOD SUCC 40 mg/ml 1 ml VIAL IV SCH (08:00)
[2023-10-05] MEDS: Pneumococcal 20-Valent Conj 0.5 ML SYR Vaccine IM ONE (09:05)
[2023-10-05] MEDS: Sulfur Hexaflouride MICROSPHR 25 MG VIAL IV ONE (11:11)
[2023-10-05] MEDS: Albuterol HFA INHALER 8 gm MDI INH PRN (12:01)
[2023-10-05] MEDS: Albuterol 2.5mg/3 ml (0.083%) NEB.SOLN INH PRN (16:15)
[2023-10-05] MEDS: Mometasone/Formoter 200/5 MDI INH SCH (19:55)
[2023-10-05] MEDS: Furosemide 40 mg/4 ml IV VIAL IV SLOW PU ONE (20:40)
[2023-10-06] MEDS: SPIRIVA Respimat (tiotropium) 2.5 mcg/inh Inhaler INH SCH (07:38)
[2023-10-08 06:43] LABS: ABS Lymphocytes 1.6 10^3/uL (1.0-4.8); ABS Monocytes 0.5 10^3/uL (0.0-0.9); ABS Neutrophils 4.3 10^3/uL (1.5-7.6); ABS Nucleated RBC 0.05 10^3/ul; Eosinophil % 0.1 %; Hematocrit 53.2 % (35-45); Hemoglobin 17.1 g/dL (11.5-14.3); Mean Corpuscular Hemoglobin 29.7 pg (27-33); Mean Corpuscular Hgb Conc 32.1 g/dL (31-36); Mean Corpuscular Volume 92.5 fL (80-97); Mean Platelet Volume 8.5 fL (7.5-11.2); Nucleated Red Blood Cells % 0.8 %/100WBC (0.0-0.8); Platelet Count 140 10^3/uL (150-450); Red Blood Count 5.76 10^6/uL (3.63-4.92); Red Cell Distribution Width 16.1 % (12-17); White Blood Count 6.4 10^3/uL (3.8-11.8)
[2023-10-08 07:04] LABS: Calcium 8.5 mg/dL (8.6-10.3); Creatinine, Serum 0.52 mg/dL (0.51-0.95); Magnesium 1.6 mg/dL (1.9-2.7); Potassium 4.7 mmol/L (3.5-5.0); eGFR CKD-EPI 106.3 (>60)
[2023-10-09] MEDS: Magnesium Sulf 4 GM/100 ML IV 4,000 MG/100 ML BAG IVPB ONE (09:04)
[2023-10-10 06:26] LABS: ABS Lymphocytes 1.6 10^3/uL (1.0-4.8); ABS Monocytes 0.6 10^3/uL (0.0-0.9); ABS Neutrophils 4.3 10^3/uL (1.5-7.6); ABS Nucleated RBC 0.02 10^3/ul; Eosinophil % 0.3 %; Hematocrit 53.2 % (35-45); Hemoglobin 16.6 g/dL (11.5-14.3); Mean Corpuscular Hemoglobin 28.9 pg (27-33); Mean Corpuscular Hgb Conc 31.2 g/dL (31-36); Mean Corpuscular Volume 92.6 fL (80-97); Mean Platelet Volume 8.3 fL (7.5-11.2); Nucleated Red Blood Cells % 0.3 %/100WBC (0.0-0.8); Platelet Count 138 10^3/uL (150-450); Red Blood Count 5.75 10^6/uL (3.63-4.92); Red Cell Distribution Width 16.3 % (12-17); White Blood Count 6.5 10^3/uL (3.8-11.8)
[2023-10-10 06:53] LABS: Calcium 8.5 mg/dL (8.6-10.3); Creatinine, Serum 0.53 mg/dL (0.51-0.95); Potassium 4.8 mmol/L (3.5-5.0); eGFR CKD-EPI 105.8 (>60)
[2023-10-10 08:20] LABS: Magnesium 2.1 mg/dL (1.9-2.7)
[2023-10-11 13:34] VITALS: BP 115/70
== END 2023-10-11 17:50 | disposition home or self-care (01) | DRG 140 ==
LOC: EDHOLD 16:41 → ED 16:41 → SUATTDRO 19:42 → MED 20:55 → SUATTDRO 10-06 07:25 → MED 10-08 20:11
PROVIDERS: ADMIT Internal Medicine; ATTEND Internal Medicine

== ENCOUNTER 2023-12-24 09:12 | Inpatient (IN) ==
[2023-12-24] MEDS ORDERED: Succinylcholine 200 mg VIAL 20 mg/ml 10 ml VIAL (200 mg) ONE (09:18)
[2023-12-24] MEDS ORDERED: Rocuronium 50 mg VIAL 10 mg/ml 5 ml VIAL (50 mg) ONE (09:18)
[2023-12-24 09:36] LABS: Venous Bicarbonate HCO3 42.2 mmol/L (24-28)
[2023-12-24 09:39] LABS: ABS Basophils 0.1 10^3/uL (0.0-0.1); ABS Eosinophils 0.1 10^3/uL (0.0-0.5); ABS Lymphocytes 3.3 10^3/uL (1.0-4.8); ABS Monocytes 1.1 10^3/uL (0.0-0.9); ABS Neutrophils 16.5 10^3/uL (1.5-7.6); ABS Nucleated RBC 0.04 10^3/ul; Eosinophil % 0.4 %; Hematocrit 46.8 % (35-45); Hemoglobin 14.7 g/dL (11.5-14.3); Lymphocyte % 15.5 %; Mean Corpuscular Hgb Conc 31.5 g/dL (31-36); Mean Corpuscular Volume 88.9 fL (80-97); Mean Platelet Volume 8.3 fL (7.5-11.2); Nucleated Red Blood Cells % 0.2 %/100WBC (0.0-0.8); Platelet Count 401 10^3/uL (150-450); Red Blood Count 5.27 10^6/uL (3.63-4.92); Red Cell Distribution Width 19.9 % (12-17); White Blood Count 21.1 10^3/uL (3.8-11.8)
[2023-12-24] MEDS ORDERED: Albuterol/Ipratropium NEB.SOL (2.5/0.5 MG) 3 ML NEB.SOLN ONE (09:53)
[2023-12-24 10:00] LABS: Activated Partial Thrombo Time 38.8 seconds (26.0-38.0); INR 1.18 (0.85-1.14)
[2023-12-24] MEDS ORDERED: Albuterol/Ipratropium NEB.SOL (2.5/0.5 MG) 3 ML NEB.SOLN INH SCH (10:00)
[2023-12-24] MEDS: Albuterol/Ipratropium NEB.SOL (2.5/0.5 MG) 3 ML NEB.SOLN INH ONE (10:00)
[2023-12-24] MEDS: Albuterol/Ipratropium NEB.SOL (2.5/0.5 MG) 3 ML NEB.SOLN INH SCH (10:01)
[2023-12-24 10:05] LABS: High Sens Troponin Baseline 5 pg/mL (<15)
[2023-12-24] MEDS: Dexamethasone IV 4 MG/ML VIAL 1 ml VIAL IV SLOW PU ONE (10:08)
[2023-12-24 10:15] LABS: ALT 8 U/L (7-52); Albumin 3.2 g/dL (3.2-5.2); Albumin/Globulin Ratio 0.6 (1-3); Alkaline Phosphatase 116 U/L (35-149); Anion Gap 7 mmol/L (2-16); Blood Urea Nitrogen 14 mg/dL (6-24); C Reactive Protein 122.09 mg/L (<8.01); CO2 Carbon Dioxide 41 mmol/L (22-32); Calcium 10.4 mg/dL (8.6-10.3); Chloride 88 mmol/L (101-111); Creatinine, Serum 0.52 mg/dL (0.51-0.95); Globulin 5.1 g/dL (2-4); Glucose 135 mg/dL (70-100); Sodium 136 mmol/L (135-145); Total Bilirubin 0.7 mg/dL (0.2-1.0); Total Protein 8.3 g/dL (6.4-8.9); eGFR CKD-EPI 106.3 (>60)
[2023-12-24 11:19] LABS: Potassium Redraw 4.6 mmol/L (3.5-5.0)
[2023-12-24] MEDS: Piperacillin/Tazobac 3.375 BAG 3.375 GM/100 ML BAG IV ONE (12:27)
[2023-12-24] MEDS ORDERED: Vancomycin 1,000 MG in NS 0.9% 250 ml 250 ML IVPB SCH (13:00)
[2023-12-24] MEDS: cefTRIAXone 1 gm/50 mL D5W 1 GM/50 ML BAG IV SCH (13:47)
[2023-12-24] MEDS: Enoxaparin 40 MG/0.4 ML SYR SUBCUT SCH (13:48)
[2023-12-24] MEDS: Azithromycin 500 mg/250 ml NS 500 MG/250 ML BAG IVPB SCH (15:05)
[2023-12-24] MEDS: Albuterol/Ipratropium NEB.SOL (2.5/0.5 MG) 3 ML NEB.SOLN INH PRN (17:55)
[2023-12-24] MEDS: methylPREDNISolone SOD SUCC 40 mg/ml 1 ml VIAL IV SCH (18:20)
[2023-12-24] MEDS: SPIRIVA Respimat (tiotropium) 2.5 mcg/inh Inhaler INH SCH (20:12)
[2023-12-24] MEDS: Mometasone/Formoter 200/5 MDI INH SCH (20:13)
[2023-12-25 04:57] LABS: ABS Lymphocytes 1.2 10^3/uL (1.0-4.8); ABS Monocytes 0.2 10^3/uL (0.0-0.9); ABS Neutrophils 7.8 10^3/uL (1.5-7.6); ABS Nucleated RBC 0.01 10^3/ul; Hematocrit 39.8 % (35-45); Hemoglobin 12.6 g/dL (11.5-14.3); Lymphocyte % 12.8 %; Mean Corpuscular Hemoglobin 28.3 pg (27-33); Mean Corpuscular Hgb Conc 31.7 g/dL (31-36); Mean Corpuscular Volume 89.4 fL (80-97); Mean Platelet Volume 7.9 fL (7.5-11.2); Nucleated Red Blood Cells % 0.1 %/100WBC (0.0-0.8); Platelet Count 304 10^3/uL (150-450); Red Blood Count 4.45 10^6/uL (3.63-4.92); Red Cell Distribution Width 19.8 % (12-17); White Blood Count 9.3 10^3/uL (3.8-11.8)
[2023-12-25 05:31] LABS: Blood Urea Nitrogen 17 mg/dL (6-24); CO2 Carbon Dioxide > 45 mmol/L (22-32); Calcium 8.7 mg/dL (8.6-10.3); Chloride 94 mmol/L (101-111); Creatinine, Serum 0.34 mg/dL (0.51-0.95); Glucose 131 mg/dL (70-100); Magnesium 1.7 mg/dL (1.9-2.7); Sodium 141 mmol/L (135-145); eGFR CKD-EPI 117.8 (>60)
[2023-12-25] MEDS: Magnesium Sulfate 2 gm BAG 2 GM/50 ML BAG IVPB ONE (05:55)
[2023-12-25 06:11] LABS: Potassium, Whole Blood 5.1 mmol/L (3.4-4.5)
[2023-12-25] MEDS ORDERED: Magnesium Sulfate IV 1GM/100ML 1 GM/100 ML BAG IV ONE (10:16)
[2023-12-25] MEDS ORDERED: Vancomycin per Pharmacy 1 EA NOTE FOLLOW UP SCH (12:00)
[2023-12-25] MEDS ORDERED: cefTRIAXone 2 gm/50 mL D5W 2 GM/50 ML BAG IV SCH (12:00)
[2023-12-25] MEDS ORDERED: Vancomycin Trough Check NOTE FOLLOW UP ONE (13:30)
[2023-12-25] MEDS: Vancomycin 750 MG in NS 0.9% 250 ML IVPB ONE (13:42)
[2023-12-25] MEDS: Iohexol 350 (CONTRAST) 500 ML MDV IV ONE (19:22)
[2023-12-25] MEDS: Vancomycin 750 MG in NS 0.9% 250 ML IVPB SCH (22:37)
[2023-12-26 04:24] LABS: ABS Lymphocytes 1.5 10^3/uL (1.0-4.8); ABS Monocytes 0.4 10^3/uL (0.0-0.9); ABS Neutrophils 10.6 10^3/uL (1.5-7.6); ABS Nucleated RBC 0.01 10^3/ul; Eosinophil % 0.1 %; Hematocrit 39.8 % (35-45); Hemoglobin 12.7 g/dL (11.5-14.3); Lymphocyte % 11.6 %; Mean Corpuscular Hemoglobin 28.3 pg (27-33); Mean Corpuscular Volume 88.5 fL (80-97); Mean Platelet Volume 7.8 fL (7.5-11.2); Nucleated Red Blood Cells % 0.1 %/100WBC (0.0-0.8); Platelet Count 302 10^3/uL (150-450); Red Cell Distribution Width 20.1 % (12-17); White Blood Count 12.5 10^3/uL (3.8-11.8)
[2023-12-26 05:19] LABS: Blood Urea Nitrogen 14 mg/dL (6-24); CO2 Carbon Dioxide > 45 mmol/L (22-32); Calcium 8.9 mg/dL (8.6-10.3); Chloride 92 mmol/L (101-111); Glucose 115 mg/dL (70-100); Magnesium 1.9 mg/dL (1.9-2.7); Potassium 5.3 mmol/L (3.5-5.0); Sodium 137 mmol/L (135-145); eGFR CKD-EPI 121.4 (>60)
[2023-12-26] MEDS: SODIUM ZIRCONIUM CYCLOSILICATE 10 GM PACKET PO ONE (05:39)
[2023-12-26] MEDS: Magnesium Sulfate 2 gm BAG 2 GM/50 ML BAG IVPB ONE (07:37)
[2023-12-26] MEDS: Vancomycin Trough Check NOTE FOLLOW UP ONE (13:43)
[2023-12-26 15:15] LABS: Calcium 8.9 mg/dL (8.6-10.3); Creatinine, Serum 0.33 mg/dL (0.51-0.95); Potassium 4.8 mmol/L (3.5-5.0); eGFR CKD-EPI 118.6 (>60)
[2023-12-26] MEDS: Permethrin 1% LOTION 59 ML BTL TOPICAL ONE (20:49)
[2023-12-27] MEDS: Vancomycin Trough Check NOTE FOLLOW UP ONE (04:56)
[2023-12-27 05:00] LABS: ABS Lymphocytes 1.8 10^3/uL (1.0-4.8); ABS Monocytes 0.3 10^3/uL (0.0-0.9); ABS Neutrophils 7.7 10^3/uL (1.5-7.6); ABS Nucleated RBC 0.02 10^3/ul; Hematocrit 44.2 % (35-45); Mean Corpuscular Hemoglobin 28.1 pg (27-33); Mean Corpuscular Hgb Conc 31.6 g/dL (31-36); Mean Platelet Volume 7.8 fL (7.5-11.2); Nucleated Red Blood Cells % 0.2 %/100WBC (0.0-0.8); Platelet Count 336 10^3/uL (150-450); Red Blood Count 4.96 10^6/uL (3.63-4.92); Red Cell Distribution Width 19.8 % (12-17); White Blood Count 9.9 10^3/uL (3.8-11.8)
[2023-12-27 05:50] LABS: Anion Gap 2 mmol/L (2-16); Blood Urea Nitrogen 13 mg/dL (6-24); CO2 Carbon Dioxide 41 mmol/L (22-32); Calcium 8.9 mg/dL (8.6-10.3); Chloride 92 mmol/L (101-111); Creatinine, Serum 0.38 mg/dL (0.51-0.95); Glucose 104 mg/dL (70-100); Magnesium 1.8 mg/dL (1.9-2.7); Sodium 135 mmol/L (135-145); eGFR CKD-EPI 114.6 (>60)
[2023-12-27] MEDS: Magnesium Sulfate 2 gm BAG 2 GM/50 ML BAG IVPB ONE (08:35)
[2023-12-27] MEDS ORDERED: Sulfur Hexaflouride MICROSPHR 25 MG VIAL IV PRN (09:56)
[2023-12-27] MEDS: Vancomycin 750 MG in NS 0.9% 250 ML IVPB SCH (15:54)
[2023-12-28 05:30] LABS: ABS Basophils 0.1 10^3/uL (0.0-0.1); ABS Lymphocytes 1.7 10^3/uL (1.0-4.8); ABS Monocytes 0.5 10^3/uL (0.0-0.9); ABS Neutrophils 7.6 10^3/uL (1.5-7.6); ABS Nucleated RBC 0.01 10^3/ul; Eosinophil % 0.1 %; Hemoglobin 13.7 g/dL (11.5-14.3); Lymphocyte % 17.5 %; Mean Corpuscular Hemoglobin 28.1 pg (27-33); Mean Corpuscular Hgb Conc 31.9 g/dL (31-36); Mean Corpuscular Volume 88.2 fL (80-97); Mean Platelet Volume 7.7 fL (7.5-11.2); Nucleated Red Blood Cells % 0.1 %/100WBC (0.0-0.8); Platelet Count 334 10^3/uL (150-450); Red Blood Count 4.87 10^6/uL (3.63-4.92); Red Cell Distribution Width 19.6 % (12-17); White Blood Count 9.9 10^3/uL (3.8-11.8)
[2023-12-28 06:00] LABS: Blood Urea Nitrogen 18 mg/dL (6-24); CO2 Carbon Dioxide 45 mmol/L (22-32); Calcium 8.6 mg/dL (8.6-10.3); Chloride 92 mmol/L (101-111); Creatinine, Serum 0.33 mg/dL (0.51-0.95); Glucose 86 mg/dL (70-100); Magnesium 1.8 mg/dL (1.9-2.7); Phosphorus 2.8 mg/dL (2.5-5.0); Potassium 5.2 mmol/L (3.5-5.0); Sodium 137 mmol/L (135-145); eGFR CKD-EPI 118.6 (>60)
[2023-12-28] MEDS: Magnesium Sulfate 2 gm BAG 2 GM/50 ML BAG IVPB ONE (08:09)
[2023-12-28] MEDS: SODIUM ZIRCONIUM CYCLOSILICATE 10 GM PACKET PO ONE (08:09)
[2023-12-28 18:23] LABS: C Reactive Protein 8.24 mg/L (<8.01)
[2023-12-29 05:05] LABS: ABS Lymphocytes 0.8 10^3/uL (1.0-4.8); ABS Monocytes 0.3 10^3/uL (0.0-0.9); ABS Neutrophils 7.9 10^3/uL (1.5-7.6); Eosinophil % 0.1 %; Hemoglobin 13.8 g/dL (11.5-14.3); Lymphocyte % 9.1 %; Mean Corpuscular Hemoglobin 28.4 pg (27-33); Mean Corpuscular Hgb Conc 32.2 g/dL (31-36); Mean Corpuscular Volume 88.1 fL (80-97); Mean Platelet Volume 7.6 fL (7.5-11.2); Platelet Count 314 10^3/uL (150-450); Red Blood Count 4.87 10^6/uL (3.63-4.92); Red Cell Distribution Width 20.3 % (12-17)
[2023-12-29] MEDS ORDERED: Vancomycin Trough Check NOTE FOLLOW UP ONE (05:30)
[2023-12-29 06:16] LABS: Calcium 8.3 mg/dL (8.6-10.3); Creatinine, Serum 0.38 mg/dL (0.51-0.95); Magnesium 1.9 mg/dL (1.9-2.7); Phosphorus 3.1 mg/dL (2.5-5.0); Potassium 4.5 mmol/L (3.5-5.0); Vancomycin Trough 8.4 mcg/mL; eGFR CKD-EPI 114.6 (>60)
[2023-12-30 07:33] LABS: ABS Basophils 0.1 10^3/uL (0.0-0.1); ABS Eosinophils 0.1 10^3/uL (0.0-0.5); ABS Lymphocytes 2.2 10^3/uL (1.0-4.8); ABS Monocytes 0.7 10^3/uL (0.0-0.9); ABS Neutrophils 6.3 10^3/uL (1.5-7.6); Eosinophil % 1.1 %; Hematocrit 40.8 % (35-45); Hemoglobin 13.2 g/dL (11.5-14.3); Mean Corpuscular Hemoglobin 28.6 pg (27-33); Mean Corpuscular Hgb Conc 32.3 g/dL (31-36); Mean Corpuscular Volume 88.5 fL (80-97); Mean Platelet Volume 7.5 fL (7.5-11.2); Platelet Count 275 10^3/uL (150-450); Red Blood Count 4.61 10^6/uL (3.63-4.92); Red Cell Distribution Width 20.1 % (12-17); White Blood Count 9.4 10^3/uL (3.8-11.8)
[2023-12-30 08:37] LABS: Calcium 8.6 mg/dL (8.6-10.3); Creatinine, Serum 0.39 mg/dL (0.51-0.95); Magnesium 1.8 mg/dL (1.9-2.7); Phosphorus 3.3 mg/dL (2.5-5.0); Potassium 4.3 mmol/L (3.5-5.0); eGFR CKD-EPI 113.9 (>60)
[2023-12-31 09:19] LABS: ABS Basophils 0.1 10^3/uL (0.0-0.1); ABS Eosinophils 0.2 10^3/uL (0.0-0.5); ABS Lymphocytes 2.9 10^3/uL (1.0-4.8); ABS Monocytes 0.7 10^3/uL (0.0-0.9); ABS Neutrophils 7.6 10^3/uL (1.5-7.6); ABS Nucleated RBC 0.01 10^3/ul; Eosinophil % 1.6 %; Hematocrit 40.5 % (35-45); Lymphocyte % 25.1 %; Mean Corpuscular Hemoglobin 28.3 pg (27-33); Mean Corpuscular Volume 88.4 fL (80-97); Platelet Count 272 10^3/uL (150-450); Red Blood Count 4.58 10^6/uL (3.63-4.92); Red Cell Distribution Width 20.8 % (12-17); White Blood Count 11.4 10^3/uL (3.8-11.8)
[2023-12-31 09:41] LABS: Calcium 8.6 mg/dL (8.6-10.3); Creatinine, Serum 0.36 mg/dL (0.51-0.95); Magnesium 1.7 mg/dL (1.9-2.7); Potassium 4.8 mmol/L (3.5-5.0); eGFR CKD-EPI 116.1 (>60)
[2023-12-31] MEDS: Magnesium Sulfate 2 gm BAG 2 GM/50 ML BAG IVPB ONE (18:07)
[2024-01-01 07:08] LABS: Calcium 8.5 mg/dL (8.6-10.3); Creatinine, Serum 0.42 mg/dL (0.51-0.95); Magnesium 2.2 mg/dL (1.9-2.7); Potassium 5.5 mmol/L (3.5-5.0); eGFR CKD-EPI 111.9 (>60)
[2024-01-02 07:35] LABS: Calcium 8.4 mg/dL (8.6-10.3); Creatinine, Serum 0.38 mg/dL (0.51-0.95); Magnesium 1.9 mg/dL (1.9-2.7); Potassium 4.8 mmol/L (3.5-5.0); eGFR CKD-EPI 114.6 (>60)
[2024-01-04 13:43] VITALS: BP 101/65
== END 2024-01-04 18:00 | disposition home health service (06) | DRG 140 ==
LOC: ED 09:12 → EDHOLD 12:41 → SUATTDRO 12:41 → ICU 12:56 → MED 12-29 20:05
PROVIDERS: ADMIT Internal Medicine Critical Care Medicine; ATTEND Internal Medicine